=== PATIENT | female | born 1935 | race Caucasian/White ===

== ENCOUNTER 2017-03-16 14:34 | Inpatient (IN) | payer MEDICARE ==
[~2017-03-16] VITALS: Ht 152.4 cm; Wt 66.8 kg
[2017-03-16 15:41] VITALS: BP 113/82
[2017-03-16] MEDS ORDERED: ACETAMINOPHEN 325 MG TABLET/CAPLET (TYLENOL) PO PRN (16:00)
--- NOTE | 2017-03-16 16:07 | Occ Therapy Progress Note ---
Therapy Progress Note Date Seen by Provider: Mar 16, 2017 Time Seen by Provider: 16:00 [phone] Orientation to rehab process and what patient could expect tomorrow. Pleasant, cooperative, verbalized understanding. ROSSY CARTER OT Mar 16, 2017 16:07
[2017-03-16 16:10] VITALS: BP 113/82
[2017-03-16] MEDS ORDERED: ACET-2422 PO (16:11)
[2017-03-16] MEDS ORDERED: METO50TA2 PO ×2 (16:11)
[2017-03-16] MEDS ORDERED: RIVA1TAB PO (16:11)
[2017-03-16] MEDS ORDERED: PANT40TA3 PO (16:11)
[2017-03-16] MEDS: RIVAROXABAN 15 MG TABLET (XARELTO) PO SCH (17:20)
--- NOTE | 2017-03-16 17:46 | HISTORY AND PHYSICAL ---
DATE OF SERVICE: 03/16/2017 CHIEF COMPLAINT: Difficulty with walking. HISTORY OF PRESENT ILLNESS: The patient is an 81-year-old female who presented from an outlying facility to [facility] with shortness of breath and left lower extremity pain and swelling and generalized weakness. The patient had recently been diagnosed with atrial fibrillation which was of new onset by PCP and patient placed herself on bedrest for 4 weeks prior to this illness which was felt to have precipitated the DVT and bilateral Pulmonary Embolism She was placed on Beta gerry and scheduled to have F/U on an outpatient basis with Comfort Advisor.. She was admitted to the hospitalist service and she was found to have pulmonary emboli and a left DVT. She was started on heparin drip and then transitioned to Xarelto. She had a 2D echocardiogram which revealed the patient in atrial fibrillation with a heart rate of 100 to 220 beats per minute, but with normal left ventricular systolic function. The patient was continued on Xarelto and metoprolol.The patient was referred to inpatient rehabilitation at [facility] as to be closer to the home. She lives alone in [place], [place] but has supportive daughter and son-in-law that live nearby and present to unit with her. She had been independent prior to this. Apparently, she requires standby assist to [facility] for mobility and much of her ADLs. PAST MEDICAL HISTORY: 1. Recent onset of atrial fibrillation. Has not seen dental hygienist mobile coordinator at this point. 2. Hypertension. 3. She was noted to have hypokalemia and she had a replacement. Hospitalist from [place] discussed case with Dr. Ruano by phone today. PAST SURGICAL HISTORY: Noncontributory. ALLERGIES: No known medication allergies. FAMILY HISTORY: Significant for HTN Heart D and Stroke SOCIAL HISTORY: Lives alone in [place], [place]. Has supportive family nearby. DIAGNOSTIC DATA: EKG done upon admission here shows atrial fibrillation,with a ventricular rate of 71 and 147. REVIEW OF SYSTEMS: A 10-point review of systems is significant for irregular beat, generalized weakness, gait imbalance. MEDICATIONS: Xarelto 15 mg p.o. b.i.d., Tylenol 650 mg p.o. q.8 hours p.r.n. mild pain, Protonix 40 mg p.o. daily, Lopressor 50 mg p.o. b.i.d. PHYSICAL EXAMINATION: GENERAL APPEARANCE: Significant for a pleasant female lying in bed, alert and oriented. No acute distress. VITAL SIGNS: Temp is 99.5, pulse 91, respirations 16, blood pressure 113/82, pulse is irregular, O2 sat 98% on room air. HEENT: Vision, speech and hearing are grossly intact. No oral lesions are noted. NECK: Supple without mass. HEART: Irregular rhythm. LUNGS: Clear. ABDOMEN: Soft and nontender. Bowel sounds present. EXTREMITIES: No limb edema. No calf tenderness. MUSCULOSKELETAL: The patient has functional passive range of motion in all 4 extremities. NEUROLOGIC: Cognition intact. Sensation intact to touch. Strength overall 4-/5. SKIN: Fungal skin rash of the groin IMPRESSION: 1. Diffuse myopathy secondary to prolonged immobilzation with resulting left lower limb deep vein thrombosis with associated bilateral pulmonary emboli status post anticoagulation with heparin and now being transitioned to Xarelto. 2. Hypertension, controlled with medication. 3. Relatively new onset atrial fibrillation, consult cardiology. 4. Fungal groin rash-Diflucan and Topical RX PLAN: The patient will have a comprehensive program of inpatient rehabilitation with goal of maximizing level of function of independence prior to discharge home with family and home healthcare. The patient will have PT/OT 90 minutes per day each discipline, 5 days a week for gait, strengthening, conditioning, balance, energy conservation, any patient or family caregiver training, necessary adaptive equipment training necessary. Therapy with cardiac and fall precautions. The patient will have speech, cognitive assessment, treat as indicated. Rehabilitation nursing to assist with bowel, bladder, skin, wound care, medications administration. creative services designer assist with discharge planning, community re-entry. Consult for general medical F/U. Follow up with Dr. Hung for cardiac eval re furhter treatment of the atrial fibrillation. Primary care provider is Dr. Tan at [facility]. Routine admission labs. ESTIMATED LENGTH OF STAY: Seven to 10 days. PROGNOSIS: Rehab prognosis appears good with a goal of discharging to home with family and home health care, modified independence, supervision for ADLs and mobility skills. DIET: Regular. CODE STATUS: Full code. Job ID: [id number] DocumentID: [id number] Dictated Date: 03/16/2017 17:08:02 Consulting Business Developer Date: 03/16/2017 17:46:29 Dictated By: AMANDA RUANO MD [facility]
[2017-03-16 18:18] VITALS: BP 100/70
[2017-03-16] MEDS: meTOprolol TARTRATE 50 MG (LOPRESSOR) TAB PO SCH (20:12)
[2017-03-16] MEDS: CLOTRIMAZOLE 1% CREAM (LOTRIMIN) 30 GM TOP SCH (20:13)
[2017-03-17 05:48] VITALS: BP 112/77
[2017-03-17] MEDS: RIVAROXABAN 15 MG TABLET (XARELTO) PO SCH ×2 (06:07→17:13)
[2017-03-17] MEDS: PANTOPRAZOLE 40 MG (PROTONIX) TAB PO SCH (06:07)
[2017-03-17 06:58] LABS: BASOPHILS % (AUTO) 0 % (0-10); EOSINOPHILS # (AUTO) 0.2 10^3/uL (0.0-0.3); EOSINOPHILS % (AUTO) 3 % (0-10); LYMPHOCYTES # (AUTO) 1.5 X 10^3 (1.0-4.0); LYMPHOCYTES % (AUTO) 23 % (12-44); MEAN CORPUSCULAR HEMOGLOBIN 26 PG (25-34); MEAN CORPUSCULAR HGB CONC 31 G/DL (32-36); MEAN CORPUSCULAR VOLUME 83 FL (80-99); MEAN PLATELET VOLUME 10.8 FL (7.4-10.4); MONOCYTES # (AUTO) 0.7 X 10^3 (0.0-1.0); MONOCYTES % (AUTO) 11 % (0-12); NEUTROPHILS # (AUTO) 3.9 X 10^3 (1.8-7.8); NEUTROPHILS % (AUTO) 62 % (42-75); PLATELET COUNT 319 10^3/uL (130-400); RED BLOOD COUNT 4.68 10^6/uL (4.35-5.85); RED CELL DISTRIBUTION WIDTH 15.7 % (10.0-14.5); WHITE BLOOD COUNT 6.2 10^3/uL (4.3-11.0)
[2017-03-17 07:20] LABS: ALANINE AMINOTRANSFERASE 28 U/L (0-55); ALBUMIN 3.3 G/DL (3.2-4.5); ANION GAP 10 MMOL/L (5-14); ASPARTATE AMINO TRANSFERASE 27 U/L (5-34); BILIRUBIN,TOTAL 0.6 MG/DL (0.1-1.0); BLOOD UREA NITROGEN 12 MG/DL (7-18); BUN/CREATININE RATIO 15; CALCIUM 9.5 MG/DL (8.5-10.1); CARBON DIOXIDE 24 MMOL/L (21-32); CHLORIDE 106 MMOL/L (98-107); CREATININE SERUM 0.79 MG/DL (0.60-1.30); GFR ESTIMATED > 60; GLUCOSE 103 MG/DL (70-105); POTASSIUM 4.3 MMOL/L (3.6-5.0); SODIUM 140 MMOL/L (135-145)
--- NOTE | 2017-03-17 08:16 | Consultation ---
History of Present Illness History of Present Illness Patient Consulted On(faraz/time) 03/17/17 08:11 Date of Admission History of Present Illness patient had shortness of breath and left lower extremity pain and swelling and generalized weakness. Recently diagnosed with A. fib. Patient had a pulmonary emboli and left DVT. Hypertension history. Debility. Patient going downhill according to her. Surgeries tonsils and D&C. Mother A. fib and CHF. Grandmother on father's side cancer Allergies and Home Medications Allergies Coded Allergies: No Known Drug Allergies (Unverified , 03/16/17) Home Medications Acetaminophen 650 Mg Tablet.er, 650 MG PO Q8H PRN for PAIN-MILD, (Reported) Metoprolol Tartrate 50 Mg Tablet, 100 MG PO DAILY, (Reported) TAKES 2 (50 MG) TABLETS Metoprolol Tartrate 50 Mg Tablet, 50 MG PO HS, (Reported) Pantoprazole Sodium 40 Mg Tablet.dr, 40 MG PO DAILY, (Reported) Rivaroxaban 1 Each Tab.ds.pk, 1 TAB PO UD, #51 (Reported) 15mg by mouth twice daily x 21 days then 20mg by mouth daily Past Troexwr-Dykrpt-Ehdruk Hx Patient Social History Alcohol Use: Denies Use Recreational Drug Use: No Smoking Status: Never a Smoker Recent Foreign Travel: No Contact w/Someone Who Travel: No Recent Infectious Disease Expo: No Recent Hopitalizations: Yes (DVT AT [place]) Physical Abuse Screen: No Sexual Abuse: No Immunizations Up To Date PED Vaccines UTD: No Date of Pneumonia Vaccine: February 08, 2017 Seasonal Allergies Seasonal Allergies: Yes (HAYFEVER) Surgeries Surgeries: Tonsillectomy Respiratory Respiratory Disorders: Pulmonary Embolism Cardiovascular Cardiac Disorders: Deep Vein Thrombosis Gastrointestinal Gastrointestinal Disorders: Diverticulosis Musculoskeletal Musculoskeletal Disorders: Arthritis HEENT Hearing Impairment: Hard of Hearing, Hearing Aide Right Family Medical History Family Medial History: Cardiovascular disease 19 FATHER 19 MOTHER Hypertension 19 MOTHER Review of Systems-General Time Seen by Provider: 08:05 Constitutional: no symptoms reported EENTM: no symptoms reported Respiratory: no symptoms reported Cardiovascular: other (atrial fibrillation) Gastrointestinal: no symptoms reported Genitourinary: no symptoms reported Physical Exam-General Problems Physical Exam Vital Signs Vital Sign - Last 12Hours 03/16/17 15:41 Temp 99.5 Pulse 91 Resp 16 B/P (MAP) 113/82 Pulse Ox 98 Capillary Refill : Less Than 3 Seconds General Appearance: WD/WN, no apparent distress Eyes: Bilateral Eye Normal Inspection HEENT: other (doris of hearing) Cardiovascular: irregularly irregular Gastrointestinal: non tender, soft Assessment/Plan Assessment/Plan Admission Diagnosis/Plan debility. Atrial fibrillation. DVT. Pulmonary emboli. Hypertension Clinical Quality Measures DVT/VTE Risk/Contraindication: Risk Factor Score Per Nursin RFS Level Per Nursing on Admit: 4+=Very High OCTAVIO COREA DO Mar 17, 2017 08:16
[2017-03-17 08:27] VITALS: BP 121/79
[2017-03-17] MEDS: fluCOnazole (DIFLUCAN) 100 MG TAB PO SCH (08:28)
[2017-03-17] MEDS: meTOprolol TARTRATE 50 MG (LOPRESSOR) TAB PO SCH (08:28)
[2017-03-17] MEDS: CLOTRIMAZOLE 1% CREAM (LOTRIMIN) 30 GM TOP SCH ×2 (08:29→20:28)
--- NOTE | 2017-03-17 08:44 | Consultation-Cardiology ---
HPI-Cardiology Cardiology Consultation: Date of Consultation 03/17/17 Date of Admission 03-16-17 Attending Physician Stanley Ruano MD Admitting Physician Unknown Consulting Physician Iesha Hung MD HPI: Chief Complaint: A-fib Ms. Clark is an 82 year old female who was admitted to [facility] on from [facility] with increasing weakness and exertional dyspnea. She was found to be in a-fib (new onset). She was also found to have bilat PE and a left leg DVT. She was treated with Heparin and then transitioned to Xarelto prior to her discharge from [facility]. She states she was taking no medications at home and had been in good health until this recent illness. She reports she is feeling better. She continues to have generalized weakness, but feels it is improving. She does not report any CP, palpitations, dyspnea, syncope or near syncope. She does note swelling to her left leg. No n/v/d. No c/o fever or chills. Review of Systems-Cardiology Review of Systems Date Seen by Provider: Mar 16, 2017 Time Seen by Provider: 08:05 Constitutional: As described under HPI Eyes: No blurred vision, No drainage, No pain, No vision change Ears/Nose/Throat: No ear discharge, No ear pain, No nasal drainage, No ulcerations Respiratory: As described under HPI Cardiovascular: As described under HPI Gastrointestinal: No constipation, No diarrhea, No nausea, No vomiting, No stool coloration changes Genitourinary: No dysuria, No discharge, No frequency, No hematuria, No urgency Skin: No rash, No skin related problems, No ulcerations Psychiatric/Neurological: No anxiety, No depression, No focal weakness, No seizure, No syncope Hematologic: No bleeding abnormalities JWM-Ktzmrx-Cfpnyg Hx Patient Social History Alcohol Use: Denies Use Recreational Drug Use: No Smoking Status: Never a Smoker Recent Foreign Travel: No Recent Infectious Disease Expo: No Physical Abuse Screen: No Sexual Abuse: No Immunizations Up To Date Date of Pneumonia Vaccine: February 08, 2017 Past Medical History PMH As described under Assessment. Family Medical History Family Medical History: She reports her mother had several strokes and hypertenison. No h/o CAD. Family History: Cardiovascular disease 19 FATHER 19 MOTHER Hypertension 19 MOTHER Allergies and Home Medications Allergies Coded Allergies: No Known Drug Allergies (Unverified , 03/16/17) Home Medications Acetaminophen 650 Mg Tablet.er, 650 MG PO Q8H PRN for PAIN-MILD, (Reported) Metoprolol Tartrate 50 Mg Tablet, 100 MG PO DAILY, (Reported) TAKES 2 (50 MG) TABLETS Metoprolol Tartrate 50 Mg Tablet, 50 MG PO HS, (Reported) Pantoprazole Sodium 40 Mg Tablet.dr, 40 MG PO DAILY, (Reported) Rivaroxaban 1 Each Tab.ds.pk, 1 TAB PO UD, #51 (Reported) 15mg by mouth twice daily x 21 days then 20mg by mouth daily Physical Exam-Cardiology Physical Exam Vital Signs/I&O Vital Sign - Last 12Hours 03/18/17 05:58 Temp 98.7 Pulse 99 Resp 20 B/P (MAP) 126/77 Pulse Ox 99 O2 Flow Rate 2.50 Intake and Output 03/18/17 00:00 Intake Total 700 ml Balance 700 ml Capillary Refill : Less Than 3 Seconds Constitutional: appears stated age, No apparent distress, well-developed, well- nourished HEENT: PERRL, No discharge, hearing is well preserved, oral hygience is good, No ulceration, No xanthelasmas are seen Neck: No carotid bruit, carotid pulses are 2 + bilaterally Respiratory: lungs clear to auscultation Cardiovascular: irregularly irregular, No JVD, S1 and S2 Gastrointestinal: No tender, soft, audible bowel sounds, No spleenomegaly Rectal: deferred Extremities: No clubbing, No cyanosis, significant edema (2 (+) edema LLE) Neurologic/Psychiatric: alert, oriented x 3, power is 5/5 both on sides Skin: No rash, No ulcerations Data Review Labs Laboratory Tests 03/18/17 05:42: Thyroid Stimulating Hormone (TSH) 1.04 ECG Impression ECG Comment A-fib, rate 107 A/P-Cardiology Assessment/Admission Diagnosis A-fib: First diagnosed March 12, 2017 PE: Extensive bilat pulmonary embolism; including large proximal PE; Pulmonary emboli are identified in all five lobes. Peripheral lung densities are identified, for which infarcts are suspected. Per CTA at [facility] on March 13, 2017 Left lower extremity DVT - Non-occlusive thrombus in the femoral vein, anterior tibial, and posterior tibial veins. Per venous Doppler at [facility] on March 13, 2017 Torres's cyst in the popliteal fossa per LLE venous Doppler at [facility] on March 13, 2017. Echocardiogram from [facility] showed she was in a-fib with a HR of greater than 100 bpm. Limited echo with limited visualization. Prob normal LV systolic function Discussion and Recomendations New finding of a-fib at the time of hospitalization on March 12, 2017. We will change her short acting BB to long acting BB. We will continue OAC with Xarelto. The echocardiogram at [facility] was a sub-optimal study and does not say LV function was normal d/t fast HR at the time of the study. We will repeat the echocardiogram to evaluate LVEF and structure. We will check a TSH. Monitor lab. We would like to thank Dr. Ruano for this consult. Further recommendations will be based on her hospital course. This consult is being scribed by Tonny Carver APRN on behalf of Dr. Hung after discussion regarding plan of care. Clinical Quality Measures DVT/VTE Risk/Contraindication: Risk Factor Score Per Nursin RFS Level Per Nursing on Admit: 4+=Very High Physician Assessment Physician Assessment THIS IS LATE ENTRY FOR MY VISIT TO THE PATIENT ON 03/17/17 AT 9:30 AM Lungs: clear Cor: irreg Data review: I reviewed her previous records A&R * As documented in our note above * I spoke with her an answered questions JENNIFER CARVER Mar 17, 2017 08:44 IESHA HUNG MD FACP [facility] Mar 18, 2017 11:00
[2017-03-17] MEDS ORDERED: RIVAROXABAN 20 MG TABLET (XARELTO) PO SCH (09:00)
[2017-03-17] MEDS ORDERED: meTOprolol SUCCINATE 100 MG (TOPROL XL) TAB PO NR (09:15)
--- NOTE | 2017-03-17 10:31 | ST Cognitive Linguistic Eval ---
Speech Evaluation-General Medical Diagnosis Debility Onset Date: Mar 16, 2017 Therapy Diagnosis Therapy Diagnosis: Cognitive Linguistic Skills WFL Precautions Precautions/Isolations: Fall Prevention, Standard Precautions Referral Referring Physician: Dr. Stanley Ruano Reason for Referral: Evaluation/Treatment Cognitive Evaluation Medical History Pertinent Medical History: Atrial Fib, HTN Social History Current Living Status: Alone Speech PLF-Current Status Prior Level of Function The patient denied any recent challenges with speech, language, or cognition. Subjective The patient was recently admitted to [facility] with a diagnosis of debility. The patient greeted the clinician appropriately and was agreeable to participation in the cognitive evaluation. Language Eval: Auditory Comprehends Simple Yes/No Ques: Functional Indent/Objects Multiple [place]: Functional Ident/Pics in Multiple [place]: Functional Follows 1-Step Commands: Functional Follows Complex Directions: Functional (Repetition was required secondary to reduced hearing.) Follows General Conversations: Functional Language Eval: Verbal Language Completes Spontaneous Greeting: Functional Produces Auto, Serial Info: Functional Imitates Simple Words/Phrases: Functional Word Finding: Functional Requests Basic Needs: Functional States Basic Personal Info: Functional Expresses Complex Ideas: Functional Cognitive Patient Orientation The patient was oriented to self, location, rationale for rehabilitation, month , day of week, and year (independently). Objective Cognitive Domain Attention: WNL Memory: WNL Problem Solving: Functional Objective Impression The patient demonstrated cognitive linguistic skills grossly within normal limits and appropriate for completion of ADL's. Communication/Social Cognition Comprehension: 5 Expression: 6 Social Interaction: 6 Problem Solvin Memory: 5 Speech Patient Assess Expression of Ideas/Wants: Expression (4) Understanding V[place]al Content: Usually Understands (3) Brief Interview-Mental Status: Yes Repetition of Three Words: Three (3) Temporal Orientation: Year: Correct (3) Temporal Orientation: Month: Accurate within 5 days(2) Temporal Orientation: Day: Correct (1) Recall : Wear to say "Sock": Yes, no cue required (2) Recall : Color: Yes, no cue required (2) Recall : Bed: Yes, no cue required (2) Speech-Plan Treatment Plan Speech Therapy Treatment Plan: Discontinue ST Evaluation, only. Rehab Potential: Good Safety Risks/Education Teaching Recipient: Patient Teaching Methods: Discussion Response to Teaching: Verbalize Understanding Education Topics Provided: Plan of Care, Results, Recommendations Time Speech Therapy Time In: 09:00 Speech Therapy Time Out: 09:15 Total Billed Time: 15 Billed Treatment Time 1, CHAIMNDEDILIA RODRIGUEZ Mar 17, 2017 10:31
--- NOTE | 2017-03-17 10:36 | Physical Therapy Evaluation ---
PT Evaluation-General Medical Diagnosis Admission Date Mar 16, 2017 at 15:48 Medical Diagnosis: generalized weakness, dyspnea, LLE swelling Onset Date: Mar 12, 2017 Therapy Diagnosis Therapy Diagnosis: impaired mobility, strength, endurance Height/Weight Height (Feet): 5 Height (Inches): 0.00 Weight (Pounds): 147 Weight (Ounces): 4.8 Precautions Precautions/Isolations: Fall Prevention, Standard Precautions Referral Physician: Alden Reason for Referral: Evaluation/Treatment Medical History Pertinent Medical History: HTN Additional Medical History UTI, diverticulitis Current History admitted from outlying facility with dx of above, shown to have bilateral pulmonary emboli and left DVT Reviewed History: Yes Social History Home: Single Level Current Living Status: Alone Entry Into Home: Stairs With Railing PT Steps Into Home: 2 Patient states her daughter only lives about 5 minutes from her. Prior/Core FIM Prior Level of Function Functional [place] Measure 0=Not Assessed/NA 4=Minimal Assistance 1=Total Assistance 5=Supervision or Setup 2=Maximal Assistance 6=Modified [place] 3=Moderate Assistance 7=Complete [place] Bed Mobility: 7 Transfers (B,C,W/C) (FIM): 7 Gait: 7 PT Evaluation-Current Subjective Patient in bed pre tx, agrees to PT reluctantly. No complaints of pain. Pt/Family Goals to go home BRANDI Objective Patient Orientation: Person, Place, Situation ROM/Strength ROM Lower Extremities WNL, knee ROM limited a little on the right side due to arthritis Strenght Lower Extremities 4-/5 gross bilateral lower extremities Neuromuscular (Tone, Coordination, Reflexes) WNL Sensory Vision: Wears Glasses Hearing: Impaired Sensation Right Lower Extremit: Intact Sensation Left Lower Extremity: Intact Transfers Functional [place] Measure 0=Not Assessed/NA 4=Minimal Assistance 1=Total Assistance 5=Supervision or Setup 2=Maximal Assistance 6=Modified [place] 3=Moderate Assistance 7=Complete IndependenceIRFPAI Quality Coding Scale 6 Independent with activity with or without an assistive device 5 Patient requires set up or clean up by helper. Patient completes activity by themselves 4 Supervision or touching assist (CGA). [place] provide cues , steadying assist 3 The helper provides less than half the effort to complete the activity 2 The helper provides more than half the effort to complete the activity 1 Dependent. The helper does all the effort to complete an activity 7 Patient refused to complete or attempt activity 9 The patient did not perform the activity before the current illness or injury 88 Not attempted due to Medical conditions or safety concerns Transfers (B, C, W/C) (FIM): 4 Scootin Rollin Roll Left to Right (QC): 4 Supine to/from Sit: 5 Sit to/from Stand: 4 Sit to Lying (QC): 4 Lying to Sitting/Side of Bed(Q: 4 Sit to Stand (QC): 4 Car Transfer (QC): 88 Patient performs bed mobility with SBA, transfers with CGA, cues for safety and hand placement. Gait Does the Patient Walk?: Yes Mode of Locomotion: Walk Anticipated Mode of Locomotion: Walk Gait (FIM): 4 Walk 10 feet (QC): 4 Walk 50 ft with 2 Turns(QC): 4 Walk 150 ft (QC): 4 Walking 10ft/uneven surface-QC: 4 Distance: 150'x2, 100' Gait Level of Assist: 4 Gait Persons Needed: 1 Gait Assistive Device: FWW Comments/Gait Description Patient can ambulate 150' with CGA using a rolling walker (including 50' with at least 2 turns of 90 degrees and 10' over an uneven surface). No LOB. Slow ambulation, fatigues quickly. Wheelchair Training Does the Pt Use a Wheelchair?: No Stairs Stairs (FIM): 1 #of Steps: 1 Level of Assist: 4 1 Step (curb) (QC): 4 4 Steps (QC): 88 Assistive Device: Walker 12 Steps (QC): 88 Patient can go up and down 1 step using a rolling walker with CGA, cues for step placement Balance Sitting Static: Normal Sitting Dynamic: Normal Standing Static: Good Standing Dynamic: Good Picking up an Object (QC): 88 Treatment NuStep level 5 for 15 min Assessment/Needs Patient has impaired mobility, strength, and endurance. Her balance is fairly good but she fatigues quickly. She would like to leave [facility]. Patient BTB post tx for a sonogram. Rehab Potential: Fair PT Short Term Goals Short Term Goals Time Frame: Mar 24, 2017 Transfers (B,C,W/C) (FIM): 5 Gait (FIM): 5 Gait Distance Comment: 200' Gait Level of Assist: 5 Gait Assistive Device: FWW PT Skilled Nursing Goals Delivery Man Goals PT Skilled Nursing Goals Time Frame: Apr 07, 2017 Transfers (B,C,W/C) (FIM): 6 Sit to Lying (QC): 6 Lying-Sitting on Side/Bed(QC): 6 Sit to Stand (QC): 6 Rollin Roll Left to Right (QC): 6 Car Transfer (QC): 4 Gait (FIM): 6 Distance: 400' Walk 10 feet (QC): 6 Walk 10ft-Uneven Surface(QC): 6 Walk 50ft with 2 Turns (QC): 6 Walk 150 ft (QC): 6 Gait Assistive Device: FWW Stairs (FIM): 2 # of Steps: 4 1 Step (curb) (QC): 4 4 Steps (QC): 4 12 Steps (QC): 88 Stairs Level Of Assist: 5 Picking up an Object (QC): 88 PT Plan Problem List Problem List: Activity Tolerance, Functional Strength, Safety, Balance, Gait, Transfer, Bed Mobility Treatment/Plan Treatment Plan: Continue Plan of Care Treatment Plan: Bed Mobility, Education, Functional Activity [place], Functional Strength, Group Therapy, Gait, Safety, Therapeutic Exercise, Transfers Treatment Duration: Apr 07, 2017 # of days/week 5-6 Visits Per Week: 10-11 Minutes/Day (M-F): 60-90 Minutes/Day (Sat/Colon): 15-30 Pt/Family Agrees w/Plan: Yes Safety Risks/Education Patient Education: Gait Training, Transfer Techniques, Steps, Correct Positioning, Safety Issues Teaching Recipient: Patient Teaching Methods: Demonstration, Discussion Response to Teaching: Reinforcement Needed Discharge Recommendations Plan Patient will perform bed mobility and transfer training, balance and endurance training, functional strengthening, stair training, and education, to improve functional mobility and independence at home. Therapy D/C Recommendations: Home w/ Family Support Time/GCodes Time In: 940 Time Out: 1040 Total Billed Treatment Time: 60 Total Billed Treatment 1 visit EVL 15' EX 15' GT 30' KIA MEDEL PT Mar 17, 2017 10:36
--- NOTE | 2017-03-17 10:56 | PM&R Post Admission Assessment ---
Post Admission Physician Asses The preadmission screen agrees with the post admission assessment that the patient is a good candidate for inpatient rehabilitation. The patient will have a comprehensive program of inpatient rehabilitation with a goal of maximizing level of functional independence prior to discharge home with family and [facility]. The patient will have PT/OT ninety minutes per day, each discipline, five days a week for gait, strengthening, conditioning, balance, ADLs, any patient/family/caregiver training as necessary. Speech therapy to do cognitive assessment and treat as indicted. Rehabilitation nursing to assist with bowel, bladder, skin, wound care, medication administration, pain management. Marketing Technologist to assist with discharge planning, community reentry. SCD's for DVT prophylaxis. She appears to be well motivated to participate in three hours of therapy a day. She should be able to tolerate three hours of therapy a day from a medical standpoint. She should benefit from the three hours of therapy a day. She has a reasonable discharge plan, reasonable discharge rehabilitation goals and a supportive family. She has various comorbidities that need to be closely monitored with medications and treatments adjusted on a daily basis as needed. These include: New onset A FIB Diffuse weakness from prolonged bedrest HTN Barriers to discharge for this patient who had been independent prior to this are for her to be modified independent to supervision for ADLs and mobility skills prior to discharge home with family, so as to lessen the burden of the caregivers. Risks for this patient include: 1. Fall 2. Fracture 3. DVT 4. Pulmonary embolism 5. Poorly controlled HTN 6. Skin breakdown 7. Contractures 8. Poorly controlled pain 9. Urinary retention 10. UTI 11. Respiratory infection 12. Aspiration 13. Poorly controlled A FIB Estimated Length of Stay: 10 days Prognosis: Rehab prognosis appears good for goal of discharge home with family modified independent to supervision for ADLs and mobility skills. AMANDA ANN MD Mar 17, 2017 10:56
--- NOTE | 2017-03-17 11:08 | Occupational Therapy Eval ---
OT Evaluation-General/PLF Medical Diagnosis Admission Date Mar 16, 2017 at 15:48 Medical Diagnosis: generalized weakness, dyspnea, LLE swelling Onset Date: Mar 12, 2017 Therapy Diagnosis Therapy Diagnosis: decreased self care skills Height/Weight Height (Feet): 5 Height (Inches): 0.00 Weight (Pounds): 147 Weight (Ounces): 4.8 Precautions Precautions/Isolations: Fall Prevention, Standard Precautions Safety Interventions: Reorient-PRN Referral Physician: [place] Medical History Pertinent Medical History: HTN Additional Medical History UTI, diverticulitis Current History Pt admitted to ARU following acute hospitalization for bilateral pulmonary emboli and left DVT Reviewed History: Yes Social History Home: Single Level Current Living Status: Alone Entry Into Home: Stairs With Railing Steps Into Home: 2 ADL-Prior Level of Function ADL PLOF Comments Pt reports living alone and being independent with self care and mobility. Has not been using any assistive devices for mobility. Pt states she has gradually feeling more weak and fatigued at home. Daughter lives nearby DME/Equipment: Bath Chair, Grab Bars, Tub/Shower Drive Self: No OT Current Status Subjective Pt in bed, agrees to therapy. 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 Sit to stand with supervision. Gait to restroom with FWW. Transfer to walk in shower with CGA and skilled cues for safety. Uses grab bars for balance. Pt doffed nightgown and socks with SBA. Seated bathing completed using hand held shower. Pt able to wash all areas. Stood with CGA for balance while washing buttocks. Don pullover shirt with minimal assistance to pull down in back. Pt states she does not wear a bra secondary to difficulty fastening it due to arthritis in shoulders. Pt donned underwear and pants with CGA for balance during pant hike. Donned bilateral socks with set up. Toilet transfer completed with CGA. Pt able to complete toileting hygiene, required CGA for balance during clothing management. Pt stood at sink for grooming tasks. Brushed teeth and combed hair with set up. Pt returned to bed with needs met and speech therapist present after session. Functional [place] Measure 0=Not Assessed/NA 4=Minimal Assistance 1=Total Assistance 5=Supervision or Setup 2=Maximal Assistance 6=Modified [place] 3=Moderate Assistance 7=Complete IndependenceIRFPAI Quality Coding Scale 6 Independent with activity with or without an assistive device 5 Patient requires set up or clean up by helper. Patient completes activity by themselves 4 Supervision or touching assist (CGA). [place] provide cues , steadying assist 3 The helper provides less than half the effort to complete the activity 2 The helper provides more than half the effort to complete the activity 1 Dependent. The helper does all the effort to complete an activity 7 Patient refused to complete or attempt activity 9 The patient did not perform the activity before the current illness or injury 88 Not attempted due to Medical conditions or safety concerns Grooming (FIM): 5 Oral Hygiene (QC): 5 Bathing (FIM): 4 Shower/Bathe Self (QC): 4 Upper Body Dressing (FIM): 4 Upper Body Dressing (QC): 3 Lower Body Dressing (FIM): 4 Lower Body Dressing (QC): 4 On/Off Footwear (QC): 5 Toileting (FIM): 4 Toileting Hygiene (QC): 4 (CGA) Toilet/Commode Transfer (FIM): 4 (CGA) Shower Transfer (FIM): 4 (CGA) Education OT Patient Education: Rehab process Teaching Recipient: Patient Teaching Methods: Discussion Response to Teaching: Verbalize Understanding OT Short Term Goals Short Term Goals Time Frame: Mar 24, 2017 Bathing(FIM): 5 Upper Body Dressing(FIM): 5 Lower Body Dressing(FIM): 5 Toileting(FIM): 5 Toilet/Commode Transfer(FIM): 5 1=Demonstrate adherence to instructed precautions during ADL tasks. 2=Patient will verbalize/demonstrate understanding of assistive devices/ modifications for ADL. 3=Patient will improve strength/tolerance for activity to enable patient to perform ADL's. OT Halfway Goals Lace Roller Operator Goals Time Frame: Apr 07, 2017 Eating (FIM): 6 Eating (QC): 6 Groomin Oral Hygiene (QC): 6 Bathing(FIM): 6 Shower/Bathe Self (QC): 6 Upper Body Dressing(FIM): 6 Upper Body Dressing (QC): 6 Lower Body Dressing(FIM): 6 Lower Body Dressing (QC): 6 On/Off Footwear (QC): 6 Toileting(FIM): 6 Toileting Hygiene (QC): 6 Toilet/Commode Transfer(FIM): 6 Toilet/Commode Transfer (QC): 6 Shower Transfer(FIM): 6 Additional Goals: 1-Demonstrate ADL Tasks, 2-Verbalize Understanding, 3- ImproveStrength/[place] 1=Demonstrate adherence to instructed precautions during ADL tasks. 2=Patient will verbalize/demonstrate understanding of assistive devices/ modifications for ADL. 3=Patient will improve strength/tolerance for activity to enable patient to perform ADL's. Goals established to improve level of function and allow safe return home. OT Education/Plan Problem List/Assessment Assessment: Decreased Activ Tolerance, Decreased UE Strength, Dependent Transfers, Impaired Self-Care Skills Pt to benefit from skilled OT intervention for ADL training, transfers, strengthening, and home safety education to maximize level of independence and allow safe return home. Discharge Recommendations Plan/Recommendations: Continue POC Treatment Plan/Plan of Care Treatment,Training & Education: Yes Patient would benefit from OT for education, treatment and training to promote independence in ADL's, mobility, safety and/or upper extremity function for ADL' s. Plan of Care: ADL Retraining, Functional Mobility, Group Exercise/Act as Ind, UE Funct Exercise/Act Treatment Duration: Apr 07, 2017 # of days/week 5-6 Visits Per Week: 10-12 Minutes/Day (M-F): 60-90 Minutes/Day (Sat/Colon): PRN Agreement: Yes Rehab Potential: Fair Time/GCodes Start Time: 08:00 Stop Time: 09:00 Total Time Billed (hr/min): 60 Billed Treatment Time 1 visit, EVL(15minutes), ADLx3(45minutes) NGHIA RAMIREZ OT Mar 17, 2017 11:08
--- NOTE | 2017-03-17 14:33 | PM & R (SOAP) Progress Note ---
Subjective Time Seen by Provider: 08:45 Subjective/Events-last exam Patient was seen in her room this AM Adjusting well to unit Appreciate DR Rutherford note and orders. Objective Exam Last Set of Vital Signs Vital Signs Date Time Temp Pulse Resp B/P (MAP) Pulse Ox O2 Delivery O2 Flow Rate FiO2 03/17/17 08:27 89 121/79 03/17/17 05:48 98.6 18 97 Capillary Refill : Less Than 3 Seconds I&O Bad tableGeneral: Alert, Oriented X3, Cooperative, No Acute Distress HEENT: Atraumatic, PERRLA, EOMI, Mucous Memb Moist/[place] Neck: Supple, No JVD Lungs: Clear to Auscultation Heart: Regular Rate Abdomen: Normal Bowel Sounds, Soft, No Tenderness Extremities: No Edema Skin: Other (Fungal groin rash) Neuro: Other (4-/5 strength all 4 limbs) Results Lab Laboratory Tests 03/17/17 06:32: White Blood Count 6.2, Red Blood Count 4.68, Hemoglobin 12.2, Hematocrit 39, Mean Corpuscular Volume 83, Mean Corpuscular Hemoglobin 26, Mean Corpuscular Hemoglobin Concent 31L, Red Cell Distribution Width 15.7H, Platelet Count 319, Mean Platelet Volume 10.8H, Neutrophils (%) (Auto) 62, Lymphocytes (%) (Auto) 23 , Monocytes (%) (Auto) 11, Eosinophils (%) (Auto) 3, Basophils (%) (Auto) 0, Neutrophils # (Auto) 3.9, Lymphocytes # (Auto) 1.5, Monocytes # (Auto) 0.7, Eosinophils # (Auto) 0.2, Basophils # (Auto) 0.0, Sodium Level 140, Potassium Level 4.3, Chloride Level 106, Carbon Dioxide Level 24, Anion Gap 10, Blood Urea Nitrogen 12, Creatinine 0.79, Estimat Glomerular Filtration Rate > 60, BUN/ Creatinine Ratio 15, Glucose Level 103, Calcium Level 9.5, Total Bilirubin 0.6, Aspartate Amino Transf (AST/SGOT) 27, Alanine Aminotransferase (ALT/SGPT) 28, Alkaline Phosphatase 108, Total Protein 6.0L, Albumin 3.3 Assessment/Plan Assessment Disuse myopathy Left DVT with bilateral Pulm Emboli on Xeralto Htn Controlled with meds New onset A FIB meds being adjusted Fungal groin skin rash on diflucan and Topical Plan Continue PT/OT Team Conference held earlier today- See report for full functional update and POC and ELOS F/U with Dr connolly and AMANDA Schaffer MD Mar 17, 2017 14:33
--- NOTE | 2017-03-17 16:17 | Therapy Group Daily Note ---
Therapy Daily Group Note Patient Education Topic Other List Below (Education over Ex that can be done in room between ARU tx) Exercises LE Seated Exercise, UE Exercise Other/Notes Pt ambulated to PT/OT Group in Therapy Commons with FWW at [facility]. Group consists of Introductions (Name, Where you live and Favorite Summertime Activity), Socialization, ARU Description and Expectations, UE/LE EX, as well as Inspirational Word of Encouragement. Pt actively participated in Group by giving appropriate responses to questions and completing Ex with Group. Pt returned to room to rest in bed at end of tx with all needs met. Start Time: 13:00 Stop Time: 14:10 Total Billed Treatment Time: 70 Total Billed Treatment visit, GRP LILA MCKEON HAT SIZER Mar 17, 2017 16:17
[2017-03-17 18:00] VITALS: BP 120/79
[2017-03-17 20:29] VITALS: BP 120/78
[2017-03-17] MEDS: meTOproloL SUCCINATE 50 MG (TOPROL XL) TAB PO SCH (20:29)
[2017-03-18 05:58] VITALS: BP 126/77
[2017-03-18] MEDS: RIVAROXABAN 15 MG TABLET (XARELTO) PO SCH ×2 (06:30→16:36)
[2017-03-18] MEDS: PANTOPRAZOLE 40 MG (PROTONIX) TAB PO SCH (06:30)
--- NOTE | 2017-03-18 07:25 | PM & R (SOAP) Progress Note ---
Subjective Time Seen by Provider: 07:00 Subjective/Events-last exam Patient was seen in her room this AM Slept well Eating OK Patient min assist for transfers Review of Systems Cardiovascular: Other (irregular Heart beat) Objective Exam Last Set of Vital Signs Vital Signs Date Time Temp Pulse Resp B/P (MAP) Pulse Ox O2 Delivery O2 Flow Rate FiO2 03/18/17 05:58 98.7 99 20 126/77 99 2.50 Capillary Refill : Less Than 3 Seconds I&O Intake and Output 03/18/17 00:00 Intake Total 900 ml Output Total 300 ml Balance 600 ml Intake Oral 900 ml Output Urine Total 300 ml # Voids 3 # Bowel Movements 1 General: Alert, Oriented X3, Cooperative, No Acute Distress HEENT: Atraumatic, PERRLA, EOMI, Mucous Memb Moist/[place] Neck: Supple, No JVD Lungs: Clear to Auscultation Heart: Regular Rate Abdomen: Normal Bowel Sounds, Soft, No Tenderness Extremities: No Edema Skin: Other (Fungal groin rash) Neuro: Other (4-/5 strength all 4 limbs) Results Lab Laboratory Tests 03/17/17 06:32: White Blood Count 6.2, Red Blood Count 4.68, Hemoglobin 12.2, Hematocrit 39, Mean Corpuscular Volume 83, Mean Corpuscular Hemoglobin 26, Mean Corpuscular Hemoglobin Concent 31L, Red Cell Distribution Width 15.7H, Platelet Count 319, Mean Platelet Volume 10.8H, Neutrophils (%) (Auto) 62, Lymphocytes (%) (Auto) 23 , Monocytes (%) (Auto) 11, Eosinophils (%) (Auto) 3, Basophils (%) (Auto) 0, Neutrophils # (Auto) 3.9, Lymphocytes # (Auto) 1.5, Monocytes # (Auto) 0.7, Eosinophils # (Auto) 0.2, Basophils # (Auto) 0.0, Sodium Level 140, Potassium Level 4.3, Chloride Level 106, Carbon Dioxide Level 24, Anion Gap 10, Blood Urea Nitrogen 12, Creatinine 0.79, Estimat Glomerular Filtration Rate > 60, BUN/ Creatinine Ratio 15, Glucose Level 103, Calcium Level 9.5, Total Bilirubin 0.6, Aspartate Amino Transf (AST/SGOT) 27, Alanine Aminotransferase (ALT/SGPT) 28, Alkaline Phosphatase 108, Total Protein 6.0L, Albumin 3.3 03/18/17 05:42: Thyroid Stimulating Hormone (TSH) 1.04 Assessment/Plan Assessment Disuse myopathy Left DVT with bilateral Pulm Emboli on Xeralto Htn Controlled with meds New onset A FIB meds being adjusted Fungal groin skin rash on diflucan and Topical Plan Continue PT/OT Team Conference held yesterday See report for full functional update and POC and ELOS F/U with Dr connolly and Nighat prn Discharge set tentatively for 03/24/17 AMANDA ANN MD Mar 18, 2017 07:25
--- NOTE | 2017-03-18 08:15 | Progress Note (SOAP) ---
Subjective Time Seen by Provider: 08:10 Subjective/Events-last exam patient feeling good today. Patient not voicing any complaints. Disuse myopathy. Atrial fibrillation. Coronary artery disease Objective Exam Vital Signs Date Time Temp Pulse Resp B/P (MAP) Pulse Ox O2 Delivery O2 Flow Rate FiO2 03/18/17 05:58 98.7 99 20 126/77 99 2.50 03/17/17 20:29 100 120/78 03/17/17 20:15 96 03/17/17 18:00 98.2 87 18 120/79 95 03/17/17 08:27 89 121/79 I & O 03/18/17 07:00 Intake Total 1000 ml Balance 1000 ml Capillary Refill : Less Than 3 Seconds General Appearance: No Apparent Distress HEENT: Normal ENT Inspection Neck: Full Range of Motion, Normal Inspection Respiratory: Chest Non Tender, Lungs Clear, Normal Breath Sounds, No Accessory Muscle Use, No Respiratory Distress Cardiovascular: Irregularly Irregular Gastrointestinal: non tender, soft Results Lab Laboratory Tests 03/18/17 05:42: Thyroid Stimulating Hormone (TSH) 1.04 Assessment/Plan Assessment/Plan Assess & Plan/Chief Complaint debility. Atrial fibrillation. DVT. Pulmonary emboli. Hypertension. . 03/18/17. Debility. Atrial fibrillation. Hypertension. DVT.. Patient alert Clinical Quality Measures DVT/VTE Risk/Contraindication: Risk Factor Score Per Nursin RFS Level Per Nursing on Admit: 4+=Very High OCTAVIO COREA DO Mar 18, 2017 08:15
[2017-03-18] MEDS: meTOprolol SUCCINATE 100 MG (TOPROL XL) TAB PO SCH (08:47)
[2017-03-18] MEDS: CLOTRIMAZOLE 1% CREAM (LOTRIMIN) 30 GM TOP SCH ×2 (08:47→20:37)
[2017-03-18] MEDS: fluCOnazole (DIFLUCAN) 100 MG TAB PO SCH (08:48)
--- NOTE | 2017-03-18 10:58 | Physical Therapy Daily Note ---
PT Daily Note-Current Subjective Patient in recliner pre tx, agrees to PT, no complaints of pain. Patient refuses to participate in group therapy this afternoon. Appearance Patient in recliner post tx with nurse call, phone, tray, all needs met. Mental Status Patient Orientation: Normal For Age Transfers Functional [place] Measure 0=Not Assessed/NA 4=Minimal Assistance 1=Total Assistance 5=Supervision or Setup 2=Maximal Assistance 6=Modified [place] 3=Moderate Assistance 7=Complete IndependenceIRFPAI Quality Coding Scale 6 Independent with activity with or without an assistive device 5 Patient requires set up or clean up by helper. Patient completes activity by themselves 4 Supervision or touching assist (CGA). [place] provide cues , steadying assist 3 The helper provides less than half the effort to complete the activity 2 The helper provides more than half the effort to complete the activity 1 Dependent. The helper does all the effort to complete an activity 7 Patient refused to complete or attempt activity 9 The patient did not perform the activity before the current illness or injury 88 Not attempted due to Medical conditions or safety concerns Transfers (B, C, W/C) (FIM): 5 Scootin Rollin Roll Left to Right (QC): 6 Supine to/from Sit: 6 Sit to/from Stand: 5 Sit to Lying (QC): 6 Sit to Stand (QC): 4 cues for safety and hand placement, will sit or stand and keep hands on walker. Patient performs bed mobility with mod I and transfers with SBA. Gait Training Gait (FIM): 5 Distance: 150'x2 Walk 10 feet (QC): 4 Walk 50 ft with 2 Turns(QC): 4 Walk 150 ft (QC): 4 Walking 10ft/uneven surface-QC: 4 Gait Level of Assist: 5 Gait Persons Needed: 1 Gait Assistive Device: FWW Patient can ambulate 150' with a rolling walker with SBA (including 50' with at least 2 turns of 90 degrees and 10' over an uneven surface). Slow, but steady ambulation. Wheelchair Training Does the Pt Use a Wheelchair?: No Stair Training Stair Training: Handrails/: 2 handrails Stairs (FIM): 2 #of Steps: 4 1 Step (curb) (QC): 4 4 Steps (QC): 4 12 Steps (QC): 88 Stairs: Pattern: Step to Level of Assist: 5 Patient can go up and down 4 steps using 2 handrails with SBA. She has trouble doing more than 4 steps because of her knees. Balance Picking up an Object (QC): 88 Exercises LAQ alternating with 2# ankle weights for 5 min, sit to stand 3 sets of 5 NuStep Minutes: 15 NuStep Workload: 5 Treatments bed mobility and transfers, ambulation, functional strengthening, stair training Assessment Current Status: Fair Progress improving mobility and endurance PT Short Term Goals Short Term Goals Time Frame: Mar 24, 2017 Gait (FIM): 5 Gait Distance Comment: 200' Gait Level of Assist: 5 Gait Assistive Device: FWW PT Blood Bank Booking Clerk Goals Blood Bank Booking Clerk Goals PT Blood Bank Booking Clerk Goals Time Frame: Apr 07, 2017 Transfers (B,C,W/C) (FIM): 6 Sit to Lying (QC): 6 (met) Lying-Sitting on Side/Bed(QC): 6 (met) Sit to Stand (QC): 6 Rollin (met) Roll Left to Right (QC): 6 (et) Car Transfer (QC): 4 Gait (FIM): 6 Distance: 400' Walk 10 feet (QC): 6 Walk 10ft-Uneven Surface(QC): 6 Walk 50ft with 2 Turns (QC): 6 Walk 150 ft (QC): 6 Gait Assistive Device: FWW Stairs (FIM): 2 # of Steps: 4 (met) 1 Step (curb) (QC): 4 (met) 4 Steps (QC): 4 (met) 12 Steps (QC): 88 Stairs Level Of Assist: 5 (met) Picking up an Object (QC): 88 PT Plan Problem List Problem List: Activity Tolerance, Functional Strength, Safety, Balance, Gait, Transfer Treatment/Plan Treatment Plan: Continue Plan of Care Treatment Plan: Bed Mobility, Education, Functional Activity [place], Functional Strength, Group Therapy, Gait, Safety, Therapeutic Exercise, Transfers Treatment Duration: Apr 07, 2017 Visits Per Week: 10-11 Minutes/Day (M-F): 60-90 Minutes/Day (Sat/Colon): 15-30 Safety Risks/Education Patient Education: Gait Training, Transfer Techniques, Steps, Safety Issues Teaching Recipient: Patient Teaching Methods: Demonstration, Discussion Response to Teaching: Reinforcement Needed Time/GCodes Time In: 1000 Time Out: 1100 Total Billed Treatment Time: 60 Total Billed Treatment 1 visit GT 30' EX 30' KIA MEDEL PT Mar 18, 2017 10:58
--- NOTE | 2017-03-18 15:09 | Occupational Ther Daily Note ---
OT Current Status-Daily Note Subjective Pt alert, sitting up in recliner. Pt agreed to therapy. No c/o pain at this time. Mental Status/Objective Patient Orientation: Person, Place, Time, Situation Functional [place] Measure 0=Not Assessed/NA 4=Minimal Assistance 1=Total Assistance 5=Supervision or Setup 2=Maximal Assistance 6=Modified [place] 3=Moderate Assistance 7=Complete [place] ADL-Treatment Functional [place] Measure 0=Not Assessed/NA 4=Minimal Assistance 1=Total Assistance 5=Supervision or Setup 2=Maximal Assistance 6=Modified [place] 3=Moderate Assistance 7=Complete IndependenceIRFPAI Quality Coding Scale 6 Independent with activity with or without an assistive device 5 Patient requires set up or clean up by helper. Patient completes activity by themselves 4 Supervision or touching assist (CGA). [place] provide cues , steadying assist 3 The helper provides less than half the effort to complete the activity 2 The helper provides more than half the effort to complete the activity 1 Dependent. The helper does all the effort to complete an activity 7 Patient refused to complete or attempt activity 9 The patient did not perform the activity before the current illness or injury 88 Not attempted due to Medical conditions or safety concerns Grooming (FIM): 5 (Standing at sink with supervision. Pt able to complete grooming.) Oral Hygiene (QC): 4 (Standing at sink with supervision. Pt able to complete grooming.) Bathing (FIM): 5 (Using grabbars, shower bench and hand held shower pt able to complete after set up.) Bathing Location: L Arm, R Arm, L Upper Leg, R Upper Leg, L Lower Leg ( including foot), R Lower Leg (including foot), Chest, Abdomen, Buttocks, Perineal Area Shower/Bathe Self (QC): 5 (Using grabbars, shower bench and hand held shower pt able to complete after set up.) Upper Body (FIM): 5 (After set up, pt is able to complete upper body dressing.) Upper Body Dressing (QC): 5 (After set up, pt is able to complete upper body dressing.) Lower Body Dressing (FIM): 5 (After set up, pt is able to complete lower body dressing.) Lower Body Dressing (QC): 5 (After set up, pt is able to complete lower body dressing.) On/Off Footwear (QC): 5 (After set up, pt is able to complete.) Toileting (FIM): 6 (Using grabbars, pt is able to complete.) Toileting Hygiene (QC): 6 (Using grabbars pt is able to complete.) Transfers (B, C, W/C) (FIM): 5 (Supervsion with transfers.) Toilet/Commode Transfer (FIM): 6 (Using FWW and grabbar pt is able to complete. ) Toilet Transfer (QC): 6 (Using FWW and grabbar pt is able to complete.) Shower Transfer(FIM): 5 (Supervision using grabbar, FWW, shower bench.) Other Treatment Pt then completed UE exercises with 2# hand wt. L shldr decrease AROM due to arthritis and increase pain with movement above 50*. Resistive clothespins completed with both hands. After therapy, pt sitting in recliner with call light/phone in reach. All needs met in. OT Short Term Goals Short Term Goals Time Frame: Mar 24, 2017 Bathing(FIM): 5 Upper Body Dressing(FIM): 5 Lower Body Dressing(FIM): 5 Toileting(FIM): 5 Toilet/Commode Transfer(FIM): 5 1=Demonstrate adherence to instructed precautions during ADL tasks. 2=Patient will verbalize/demonstrate understanding of assistive devices/ modifications for ADL. 3=Patient will improve strength/tolerance for activity to enable patient to perform ADL's. OT Snf Goals Red Lead Burner Goals Time Frame: Apr 07, 2017 Eating (FIM): 6 Eating (QC): 6 Groomin Oral Hygiene (QC): 6 Bathing(FIM): 6 Shower/Bathe Self (QC): 6 Upper Body Dressing(FIM): 6 Upper Body Dressing (QC): 6 Lower Body Dressing(FIM): 6 Lower Body Dressing (QC): 6 On/Off Footwear (QC): 6 Toileting(FIM): 6 Toileting Hygiene (QC): 6 Toilet/Commode Transfer(FIM): 6 Toilet/Commode Transfer (QC): 6 Shower Transfer(FIM): 6 Additional Goals: 1-Demonstrate ADL Tasks, 2-Verbalize Understanding, 3- ImproveStrength/[place] 1=Demonstrate adherence to instructed precautions during ADL tasks. 2=Patient will verbalize/demonstrate understanding of assistive devices/ modifications for ADL. 3=Patient will improve strength/tolerance for activity to enable patient to perform ADL's. OT Education/Plan Problem List/Assessment Pt to benefit from skilled OT intervention for ADL training, transfers, strengthening, and home safety education to maximize level of independence and allow safe return home. Discharge Recommendations Plan/Recommendations: Continue POC Treatment Plan/Plan of Care Patient would benefit from OT for education, treatment and training to promote independence in ADL's, mobility, safety and/or upper extremity function for ADL' s. Plan of Care: ADL Retraining, Functional Mobility, Group Exercise/Act as Ind, UE Funct Exercise/Act Treatment Duration: Apr 07, 2017 Visits Per Week: 10-12 Minutes/Day (M-F): 60-90 Minutes/Day (Sat/Colon): PRN Agreement: Yes Rehab Potential: Fair Time/GCodes Start Time: 09:00 Stop Time: 10:00 Total Time Billed (hr/min): 60 Billed Treatment Time 1 visit-ADL 3 (45 min) EX 1 (15 min) EDUARDO FAUSTIN Mar 18, 2017 15:09
--- NOTE | 2017-03-18 16:15 | Physical Therapy Daily Note ---
PT Daily Note-Current Subjective Patient agrees to PT. Pain Numeric Pain Scale: 0-No Pain Location: No Pain Reported Mental Status Patient Orientation: Normal For Age Transfers Functional [place] Measure 0=Not Assessed/NA 4=Minimal Assistance 1=Total Assistance 5=Supervision or Setup 2=Maximal Assistance 6=Modified [place] 3=Moderate Assistance 7=Complete IndependenceIRFPAI Quality Coding Scale 6 Independent with activity with or without an assistive device 5 Patient requires set up or clean up by helper. Patient completes activity by themselves 4 Supervision or touching assist (CGA). [place] provide cues , steadying assist 3 The helper provides less than half the effort to complete the activity 2 The helper provides more than half the effort to complete the activity 1 Dependent. The helper does all the effort to complete an activity 7 Patient refused to complete or attempt activity 9 The patient did not perform the activity before the current illness or injury 88 Not attempted due to Medical conditions or safety concerns Transfers (B, C, W/C) (FIM): 6 Scootin Rollin Roll Left to Right (QC): 6 Supine to/from Sit: 6 Sit to/from Stand: 6 Sit to Lying (QC): 6 Sit to Stand (QC): 6 Chair/Cjt-pl-Gkcay Xfer(QC): 6 Bed to/from Chair: 6 Gait Training Does the Patient Walk?: Yes Gait (FIM): 6 Distance (FIM): 3=150 ft Distance: 150' x 2 Walk 10 feet (QC): 5 Walk 50 ft with 2 Turns(QC): 5 Walk 150 ft (QC): 5 Gait Level of Assist: 6 Gait Assistive Device: FWW safe and functional Exercises Standing: Hip Abduction, Heel/toe raises, 3 way Ex=Flex, Abd, Ext, Mini squats Standing Reps: 20 2 sets Assessment Patient tolerated treatment well and returned to bed with needs met. PT Short Term Goals Short Term Goals Time Frame: Mar 24, 2017 Gait (FIM): 5 Gait Distance Comment: 200' Gait Level of Assist: 5 Gait Assistive Device: FWW PT Furniture Duster Goals [facility] Goals PT Furniture Duster Goals Time Frame: Apr 07, 2017 Transfers (B,C,W/C) (FIM): 6 Sit to Lying (QC): 6 (met) Lying-Sitting on Side/Bed(QC): 6 (met) Sit to Stand (QC): 6 Rollin (met) Roll Left to Right (QC): 6 (et) Car Transfer (QC): 4 Gait (FIM): 6 Distance: 400' Walk 10 feet (QC): 6 Walk 10ft-Uneven Surface(QC): 6 Walk 50ft with 2 Turns (QC): 6 Walk 150 ft (QC): 6 Gait Assistive Device: FWW Stairs (FIM): 2 # of Steps: 4 (met) 1 Step (curb) (QC): 4 (met) 4 Steps (QC): 4 (met) 12 Steps (QC): 88 Stairs Level Of Assist: 5 (met) Picking up an Object (QC): 88 PT Plan Treatment/Plan Treatment Plan: Continue Plan of Care Treatment Plan: Bed Mobility, Education, Functional Activity [place], Functional Strength, Group Therapy, Gait, Safety, Therapeutic Exercise, Transfers Treatment Duration: Apr 07, 2017 Visits Per Week: 10-11 Minutes/Day (M-F): 60-90 Minutes/Day (Sat/Colon): 15-30 Time/GCodes Time In: 1540 Time Out: 1610 Total Billed Treatment Time: 30 Total Billed Treatment 1 visit EX 20 min GT 10 min FERNANDA CHANDRA PT Mar 18, 2017 16:15
[2017-03-18 19:00] VITALS: BP_SYST 108; BP_SYST 94; BP_DIAS 58; BP_DIAS 75
[2017-03-18] MEDS: meTOproloL SUCCINATE 50 MG (TOPROL XL) TAB PO SCH (20:36)
[2017-03-19 05:18] VITALS: BP 117/67
[2017-03-19] MEDS: PANTOPRAZOLE 40 MG (PROTONIX) TAB PO SCH (06:08)
[2017-03-19] MEDS: RIVAROXABAN 15 MG TABLET (XARELTO) PO SCH ×2 (06:08→16:39)
--- NOTE | 2017-03-19 07:51 | PM & R (SOAP) Progress Note ---
Subjective Time Seen by Provider: 07:15 Subjective/Events-last exam Patient was seen in her room this AM Case discussed with RN this AM and SW yesterday afternoon Discharge has been moved up to 03/21/17 to home in [facility] with Family and [facility] Patient modifiied Independent for transfers Appreciate Cardiology note Objective Exam Last Set of Vital Signs Vital Signs Date Time Temp Pulse Resp B/P (MAP) Pulse Ox O2 Delivery O2 Flow Rate FiO2 03/19/17 05:18 98.2 84 16 117/67 97 03/18/17 05:58 2.50 Capillary Refill : Less Than 3 Seconds I&O Intake and Output 03/19/17 00:00 Intake Total 1020 ml Balance 1020 ml Intake Oral 1020 ml # Voids 6 General: Alert, Oriented X3, Cooperative, No Acute Distress HEENT: Atraumatic, PERRLA, EOMI, Mucous Memb Moist/[place] Neck: Supple, No JVD Lungs: Clear to Auscultation Heart: Regular Rate Abdomen: Normal Bowel Sounds, Soft, No Tenderness Extremities: No Edema Skin: Other (Fungal groin rash) Neuro: Other (Strength 4/5 overall) Results Lab Laboratory Tests 03/17/17 06:32: White Blood Count 6.2, Red Blood Count 4.68, Hemoglobin 12.2, Hematocrit 39, Mean Corpuscular Volume 83, Mean Corpuscular Hemoglobin 26, Mean Corpuscular Hemoglobin Concent 31L, Red Cell Distribution Width 15.7H, Platelet Count 319, Mean Platelet Volume 10.8H, Neutrophils (%) (Auto) 62, Lymphocytes (%) (Auto) 23 , Monocytes (%) (Auto) 11, Eosinophils (%) (Auto) 3, Basophils (%) (Auto) 0, Neutrophils # (Auto) 3.9, Lymphocytes # (Auto) 1.5, Monocytes # (Auto) 0.7, Eosinophils # (Auto) 0.2, Basophils # (Auto) 0.0, Sodium Level 140, Potassium Level 4.3, Chloride Level 106, Carbon Dioxide Level 24, Anion Gap 10, Blood Urea Nitrogen 12, Creatinine 0.79, Estimat Glomerular Filtration Rate > 60, BUN/ Creatinine Ratio 15, Glucose Level 103, Calcium Level 9.5, Total Bilirubin 0.6, Aspartate Amino Transf (AST/SGOT) 27, Alanine Aminotransferase (ALT/SGPT) 28, Alkaline Phosphatase 108, Total Protein 6.0L, Albumin 3.3 03/18/17 05:42: Thyroid Stimulating Hormone (TSH) 1.04 Assessment/Plan Assessment Disuse myopathy Left DVT with bilateral Pulm Emboli on Xeralto Htn Controlled with meds New onset A FIB meds being adjusted Fungal groin skin rash on diflucan and Topical Plan Continue PT/OT Team Conference held 03-17-17 See report for full functional update and POC and ELOS F/U with Dr connolly and Nighat prteodora Discharge reset for 03/21/17 Patient will have f/u with PCP and Cardiology on an outpatient basis AMANDA ANN MD Mar 19, 2017 07:51
[2017-03-19] MEDS ORDERED: METO-272 PO (07:57)
[2017-03-19] MEDS ORDERED: METO-274 PO (07:57)
[2017-03-19] MEDS ORDERED: CLOT15CR5 TOP (07:57)
[2017-03-19] MEDS: CLOTRIMAZOLE 1% CREAM (LOTRIMIN) 30 GM TOP SCH ×2 (08:27→20:17)
[2017-03-19] MEDS: fluCOnazole (DIFLUCAN) 100 MG TAB PO SCH (08:27)
[2017-03-19] MEDS: meTOprolol SUCCINATE 100 MG (TOPROL XL) TAB PO SCH (08:27)
--- NOTE | 2017-03-19 08:28 | Progress Note (SOAP) ---
Subjective Time Seen by Provider: 08:00 Subjective/Events-last exam disuse myopathy. she is feeling better. Patient to go home this Wednesday Objective Exam Vital Signs Date Time Temp Pulse Resp B/P (MAP) Pulse Ox O2 Delivery O2 Flow Rate FiO2 03/19/17 05:18 98.2 84 16 117/67 97 03/18/17 19:00 98.5 95 16 108/75 96 I & O 03/19/17 07:00 Intake Total 1070 ml Balance 1070 ml Capillary Refill : Less Than 3 Seconds General Appearance: No Apparent Distress, WD/WN Assessment/Plan Assessment/Plan Assess & Plan/Chief Complaint debility. Atrial fibrillation. DVT. Pulmonary emboli. Hypertension. . 03/18/17. Debility. Atrial fibrillation. Hypertension. DVT.. Patient alert. . 03/19/17. Debility. Atrial fibrillation. Hypertension DVT. Patient feeling better and will go home Wednesday Clinical Quality Measures DVT/VTE Risk/Contraindication: Risk Factor Score Per Nursin RFS Level Per Nursing on Admit: 4+=Very High OCTAVIO COREA DO Mar 19, 2017 08:28
--- NOTE | 2017-03-19 08:58 | Progress Note-Cardiology ---
Cardiology SOAP Progress Note Subjective: Up with OT. No c/o CP, palpitations, dyspnea, syncope or near syncope. Objective: I&O/Vital Signs Vital Sign - Last 12Hours 03/19/17 05:18 Temp 98.2 Pulse 84 Resp 16 B/P (MAP) 117/67 Pulse Ox 97 Intake and Output 03/19/17 00:00 Intake Total 720 ml Balance 720 ml Weight (Pounds): 147 Weight (Ounces): 4.8 Weight (Calculated Kilograms): [id number] Constitutional: appears stated age, No apparent distress, well-developed, well- nourished Respiratory: lungs clear to auscultation Cardiovascular: irregularly irregular, No JVD, S1 and S2 Gastrointestional: No tender, soft, audible bowel sounds, No spleenomegaly Extremities: No clubbing, No cyanosis, significant edema (2 (+) edema LLE) Neurologic/Psychiatric: alert, oriented x 3, power is 5/5 both on sides Skin: No rash, No ulcerations A/P: Assessment: A-fib: First diagnosed March 12, 2017 PE: Extensive bilat pulmonary embolism; including large proximal PE; Pulmonary emboli are identified in all five lobes. Peripheral lung densities are identified, for which infarcts are suspected. Per CTA at [facility] on March 13, 2017 Left lower extremity DVT - Non-occlusive thrombus in the femoral vein, anterior tibial, and posterior tibial veins. 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 Echo of 03/17/17 showed LVEF 65%, mild MR and TR, PASP approx 30 mmHg Plan: New finding of a-fib at the time of hospitalization on March 12, 2017. Continue long acting BB. We will continue OAC with Xarelto Echocardiogram results pending Plan is for her to discharge home on Wednesday Advise outpt f/u with us in a week Physician Assessment Physician Assessment Lungs: good bilat air entry Cor: irreg A&R * As documented in our note above that I updated at the time of this writing * Ok to discharge from card standpoint * Oupt card f/u advised JENNIFER RAI COLOR BLENDER Mar 19, 2017 08:58 OANH DON MD [facility] Mar 19, 2017 13:41
--- NOTE | 2017-03-19 09:36 | Individualized Plan of Care ---
Individualized Plan of Care Rehab Nursing IPOC Order Admission Date Mar 16, 2017 at 15:48 Current Orders Orders Patient Visit (03/18/17 ) Gait Training, Ea 15 Min (03/18/17 ) Exercise Therap, Ea 15 Min (03/18/17 ) Patient Visit (03/18/17 ) Exercise Therap, Ea 15 Min (03/18/17 ) Gait Training, Ea 15 Min (03/18/17 ) Attending D/C Order-Pending (03/19/17 07:53) Rehab Nursing Orders: Diseage Management, Edu in Press Rel Techn, Hydration Management, Nutrition Management Toilet every (bladder): (hrs): 2 hours while awake prn PT IPOC Problem List: Activity Tolerance, Functional Strength, Safety, Balance, Gait, Transfer Treatment Plan: Continue Plan of Care Bed Mobility, Education, Functional Activity [place], Functional Strength, Group Therapy, Gait, Safety, Therapeutic Exercise, Transfers Treatment Duration: Apr 07, 2017 Visits Per Week: 10-11 Minutes/Day (M-F): 60-90 Minutes/Day (Sat/Colon): 15-30 OT IPOC Problems: Decreased Activ Tolerance, Decreased UE Strength, Dependent Transfers , Impaired Self-Care Skills OT Problems Pt to benefit from skilled OT intervention for ADL training, transfers, strengthening, and home safety education to maximize level of independence and allow safe return home. 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 Medical Prognosis: good Anticipated Length of Stay: 03-21-17 Rehab Goals Modified Independent for adls and mobility skills Anticipated discharge destinat: Home with family and [facility] AMANDA ANN MD Mar 19, 2017 09:36
--- NOTE | 2017-03-19 10:19 | Occupational Ther Daily Note ---
OT Current Status-Daily Note Subjective Pt eating lunch sitting in recliner. Pt agreed to therapy. No c/o pain. Mental Status/Objective Patient Orientation: Person, Place, Time, Situation Functional [place] Measure 0=Not Assessed/NA 4=Minimal Assistance 1=Total Assistance 5=Supervision or Setup 2=Maximal Assistance 6=Modified [place] 3=Moderate Assistance 7=Complete [place] ADL-Treatment Functional [place] Measure 0=Not Assessed/NA 4=Minimal Assistance 1=Total Assistance 5=Supervision or Setup 2=Maximal Assistance 6=Modified [place] 3=Moderate Assistance 7=Complete IndependenceIRFPAI Quality Coding Scale 6 Independent with activity with or without an assistive device 5 Patient requires set up or clean up by helper. Patient completes activity by themselves 4 Supervision or touching assist (CGA). [place] provide cues , steadying assist 3 The helper provides less than half the effort to complete the activity 2 The helper provides more than half the effort to complete the activity 1 Dependent. The helper does all the effort to complete an activity 7 Patient refused to complete or attempt activity 9 The patient did not perform the activity before the current illness or injury 88 Not attempted due to Medical conditions or safety concerns Other Treatment Pt was able to set self up and use regular utensils to cook food and feed self. Pt completed arm bike in room 15 min at 15 ballard resistance to increase strength and endurance for daily functional tasks. Pt took 2 recovery breaks during task. Discussed pt's home environment for safe transfers and daily tasks that will be completed when pt is home. Pt stated that she had to take care of her and that she would do fine in her house. Pt states that she already has the AE for bathing and her house is set up fine for her. After therapy, pt sitting in recliner with call light/phone in reach. All needs met in room. Education OT Patient Education: Safety issues, Use of adapted equipment Teaching Recipient: Patient Teaching Methods: Discussion Response to Teaching: Verbalize Understanding OT Short Term Goals Short Term Goals Time Frame: Mar 24, 2017 Bathing(FIM): 5 Upper Body Dressing(FIM): 5 Lower Body Dressing(FIM): 5 Toileting(FIM): 5 Toilet/Commode Transfer(FIM): 5 1=Demonstrate adherence to instructed precautions during ADL tasks. 2=Patient will verbalize/demonstrate understanding of assistive devices/ modifications for ADL. 3=Patient will improve strength/tolerance for activity to enable patient to perform ADL's. OT Power Electronics Engineer Goals Correction Goals Time Frame: Apr 07, 2017 Eating (FIM): 6 Eating (QC): 6 Groomin Oral Hygiene (QC): 6 Bathing(FIM): 6 Shower/Bathe Self (QC): 6 Upper Body Dressing(FIM): 6 Upper Body Dressing (QC): 6 Lower Body Dressing(FIM): 6 Lower Body Dressing (QC): 6 On/Off Footwear (QC): 6 Toileting(FIM): 6 Toileting Hygiene (QC): 6 Toilet/Commode Transfer(FIM): 6 Toilet/Commode Transfer (QC): 6 Shower Transfer(FIM): 6 Additional Goals: 1-Demonstrate ADL Tasks, 2-Verbalize Understanding, 3- ImproveStrength/[place] 1=Demonstrate adherence to instructed precautions during ADL tasks. 2=Patient will verbalize/demonstrate understanding of assistive devices/ modifications for ADL. 3=Patient will improve strength/tolerance for activity to enable patient to perform ADL's. OT Education/Plan Problem List/Assessment Pt to benefit from skilled OT intervention for ADL training, transfers, strengthening, and home safety education to maximize level of independence and allow safe return home. Discharge Recommendations Plan/Recommendations: Continue POC Treatment Plan/Plan of Care Patient would benefit from OT for education, treatment and training to promote independence in ADL's, mobility, safety and/or upper extremity function for ADL' s. Plan of Care: ADL Retraining, Functional Mobility, Group Exercise/Act as Ind, UE Funct Exercise/Act Treatment Duration: Apr 07, 2017 Visits Per Week: 10-12 Minutes/Day (M-F): 60-90 Minutes/Day (Sat/Colon): PRN Agreement: Yes Rehab Potential: Fair Time/GCodes Start Time: 12:20 Stop Time: 12:50 Total Time Billed (hr/min): 30 Billed Treatment Time 1 visit-EX 1 (15 min) FA 1 (15 min) Late entry for 03/18/2017 EDUARDO FAUSTIN Mar 19, 2017 10:19
--- NOTE | 2017-03-19 11:09 | Physical Therapy Daily Note ---
PT Daily Note-Current Subjective Pt. shares that she realizes she was very ill and very fortunate to survive. Shares that she lives in a home with 2-3 steps to negotiate but that her dtr lives 2 blocks away and will be there often. "I am not afraid and never want to leave my home" Pain Numeric Pain Scale: 0-No Pain Comment: c/o only that she feels she needs to gain more strength Mental Status Patient Orientation: Normal For Age Transfers Functional [place] Measure 0=Not Assessed/NA 4=Minimal Assistance 1=Total Assistance 5=Supervision or Setup 2=Maximal Assistance 6=Modified [place] 3=Moderate Assistance 7=Complete IndependenceIRFPAI Quality Coding Scale 6 Independent with activity with or without an assistive device 5 Patient requires set up or clean up by helper. Patient completes activity by themselves 4 Supervision or touching assist (CGA). [place] provide cues , steadying assist 3 The helper provides less than half the effort to complete the activity 2 The helper provides more than half the effort to complete the activity 1 Dependent. The helper does all the effort to complete an activity 7 Patient refused to complete or attempt activity 9 The patient did not perform the activity before the current illness or injury 88 Not attempted due to Medical conditions or safety concerns Transfers (B, C, W/C) (FIM): 6 Scootin Rollin Supine to/from Sit: 6 Sit to/from Stand: 6 Gait Training Does the Patient Walk?: Yes Gait (FIM): 6 Distance (FIM): 3=150 ft (x3) Walk 10 feet (QC): 6 Walk 50 ft with 2 Turns(QC): 6 Walk 150 ft (QC): 6 Walking 10ft/uneven surface-QC: 6 Gait Level of Assist: 6 Gait Persons Needed: 0 Gait Assistive Device: FWW no LOB, good technique and safety awareness Stair Training Stair Training: Handrails/: 2 handrails Stairs (FIM): 5 #of Steps: 12 1 Step (curb) (QC): 5 4 Steps (QC): 5 12 Steps (QC): 5 Stairs: Pattern: Step to Level of Assist: 5 needs SBA only, discussed managing FWW on steps, all went well, has routine from when her was living and used steps and FWW Balance Picking up an Object (QC): 5 Exercises Supine Ex: Bridging, Ankle pumps, Quad Set, Rolling, Glut sets, Lower trunk rotation, Heel Slides, Short Arc Quads, Scooting, Straight leg raise, Hip abd/ add Supine Reps: 15 NuStep Minutes: 10 NuStep Workload: 2 Treatments toilets Indep Assessment Current Status: Excellent Progress meets goals PT Short Term Goals Short Term Goals Time Frame: Mar 24, 2017 Gait (FIM): 5 Gait Distance Comment: 200' Gait Level of Assist: 5 Gait Assistive Device: FWW PT Alf Goals Exercise Planner Goals PT Exercise Planner Goals Time Frame: Apr 07, 2017 Transfers (B,C,W/C) (FIM): 6 Sit to Lying (QC): 6 (met) Lying-Sitting on Side/Bed(QC): 6 (met) Sit to Stand (QC): 6 Rollin Roll Left to Right (QC): 6 (et) Car Transfer (QC): 4 Gait (FIM): 6 Distance: 400' Walk 10 feet (QC): 6 Walk 10ft-Uneven Surface(QC): 6 Walk 50ft with 2 Turns (QC): 6 Walk 150 ft (QC): 6 Gait Assistive Device: FWW Stairs (FIM): 2 # of Steps: 4 (met) 1 Step (curb) (QC): 4 (met) 4 Steps (QC): 4 (met) 12 Steps (QC): 88 Stairs Level Of Assist: 5 (met) Picking up an Object (QC): 88 PT Plan Treatment/Plan Treatment Plan: Continue Plan of Care Treatment Plan: Bed Mobility, Education, Functional Activity [place], Functional Strength, Group Therapy, Gait, Safety, Therapeutic Exercise, Transfers Treatment Duration: Apr 07, 2017 Visits Per Week: 10-11 Minutes/Day (M-F): 60-90 Minutes/Day (Sat/Colon): 15-30 Safety Risks/Education Patient Education: Gait Training, Transfer Techniques, Steps, Correct Positioning, Disease Process, Safety Issues Teaching Recipient: Patient Teaching Methods: Demonstration, Discussion Response to Teaching: Verbalize Understanding, Return Demonstration, Reinforcement Needed (walker up down steps) Time/GCodes Time In: 1000 Time Out: 1100 Total Billed Treatment Time: 60 Total Billed Treatment 1,FA15m,EX25m,GT20 G Codes Necessary: CANDACE Ashley NEWSPAPER DELIVERY COUNSELOR Mar 19, 2017 11:09
--- NOTE | 2017-03-19 12:50 | Occupational Ther Daily Note ---
OT Current Status-Daily Note Subjective Pt sitting in chair, agrees to treatment. Pt states she feels ready to go home this weekend. Mental Status/Objective Functional [place] Measure 0=Not Assessed/NA 4=Minimal Assistance 1=Total Assistance 5=Supervision or Setup 2=Maximal Assistance 6=Modified [place] 3=Moderate Assistance 7=Complete [place] ADL-Treatment Sit to stand with modified independence. Pt retrieved clothing from closet with FWW for balance. To restroom with FWW, no LOB noted. Toilet transfer completed with modified independence. Pt able to complete toileting hygiene and clothing management with modified independence. Transfer to walk in shower with supervision using grab bar for safety. [place] clothing without assistance. Pt completed bathing with hand held shower. Assist required to manage faucet. Pt able to wash all areas. Pt did not use soap secondary to stating it makes her skin too dry. Pt able to dry all areas without assist. Don pullover shirt with modified independence. Pt donned Depends and pants with modified independence. Stood with good balance for pant hike. Pt able to don socks without assistance. Pt stood at sink for grooming tasks. Brushed hair and completed oral care with modified independence. Functional [place] Measure 0=Not Assessed/NA 4=Minimal Assistance 1=Total Assistance 5=Supervision or Setup 2=Maximal Assistance 6=Modified [place] 3=Moderate Assistance 7=Complete IndependenceIRFPAI Quality Coding Scale 6 Independent with activity with or without an assistive device 5 Patient requires set up or clean up by helper. Patient completes activity by themselves 4 Supervision or touching assist (CGA). [place] provide cues , steadying assist 3 The helper provides less than half the effort to complete the activity 2 The helper provides more than half the effort to complete the activity 1 Dependent. The helper does all the effort to complete an activity 7 Patient refused to complete or attempt activity 9 The patient did not perform the activity before the current illness or injury 88 Not attempted due to Medical conditions or safety concerns Eating (FIM): 6 (by report. ) Eating (QC): 6 Grooming (FIM): 6 Oral Hygiene (QC): 6 Bathing (FIM): 5 (set up) Shower/Bathe Self (QC): 5 Upper Body (FIM): 6 Upper Body Dressing (QC): 6 Lower Body Dressing (FIM): 6 Lower Body Dressing (QC): 6 On/Off Footwear (QC): 6 Toileting (FIM): 6 Toileting Hygiene (QC): 6 Toilet/Commode Transfer (FIM): 6 Toilet Transfer (QC): 6 Shower Transfer(FIM): 5 Other Treatment Pt performed gait to therapy gym with FWW, no LOB noted. Graded clothespin activity with bilateral hands to increase rn gastroenterology/pinch strength. Pt performed tabletop peg activity with bilateral UE with 1# weights in place to increase strength and coordination. Pt required one rest break during task secondary to fatigue. Pt completed fine motor task with nuts and bolts to increase coordination/manipulation skills. Pt completed biceps curls and triceps extension exercises x20 reps with red theraband to increase strength needed for ADLs and transfers. Pt performed sit to stand x10 reps with modified independence to increase strength for transfers. Pt states she has a tub shower at home. Pt demonstrated ability to transfer into/ out of tub with supervision using grab bar. Pt returned to room, sitting in chair with needs met after session. OT Short Term Goals Short Term Goals Time Frame: Mar 24, 2017 Bathing(FIM): 5 Upper Body Dressing(FIM): 5 Lower Body Dressing(FIM): 5 Toileting(FIM): 5 Toilet/Commode Transfer(FIM): 5 1=Demonstrate adherence to instructed precautions during ADL tasks. 2=Patient will verbalize/demonstrate understanding of assistive devices/ modifications for ADL. 3=Patient will improve strength/tolerance for activity to enable patient to perform ADL's. OT Customer Service Driver Goals Customer Service Driver Goals Time Frame: Apr 07, 2017 Eating (FIM): 6 (met 03/19/17) Eating (QC): 6 (6-MET) Groomin (met 03/19/17) Oral Hygiene (QC): 6 (6-MET) Bathing(FIM): 6 (not met) Shower/Bathe Self (QC): 6 (5(set up)-not met) Upper Body Dressing(FIM): 6 (met 03/19/17) Upper Body Dressing (QC): 6 (6-MET) Lower Body Dressing(FIM): 6 (met 03/19/17) Lower Body Dressing (QC): 6 (6-MET) On/Off Footwear (QC): 6 (6-MET) Toileting(FIM): 6 (met 03/19/17) Toileting Hygiene (QC): 6 (6-MET) Toilet/Commode Transfer(FIM): 6 (met 03/19/17) Toilet/Commode Transfer (QC): 6 (6-MET) Shower Transfer(FIM): 6 (not met) Additional Goals: 1-Demonstrate ADL Tasks, 2-Verbalize Understanding, 3- ImproveStrength/[place] 1=Demonstrate adherence to instructed precautions during ADL tasks. 2=Patient will verbalize/demonstrate understanding of assistive devices/ modifications for ADL. 3=Patient will improve strength/tolerance for activity to enable patient to perform ADL's. OT Education/Plan Problem List/Assessment Pt to benefit from skilled OT intervention for ADL training, transfers, strengthening, and home safety education to maximize level of independence and allow safe return home. Discharge Recommendations Plan/Recommendations: Continue POC Treatment Plan/Plan of Care Patient would benefit from OT for education, treatment and training to promote independence in ADL's, mobility, safety and/or upper extremity function for ADL' s. Plan of Care: ADL Retraining, Functional Mobility, Group Exercise/Act as Ind, UE Funct Exercise/Act Treatment Duration: Apr 07, 2017 Visits Per Week: 10-12 Minutes/Day (M-F): 60-90 Minutes/Day (Sat/Colon): PRN Agreement: Yes Rehab Potential: Fair Time/GCodes Start Time: 08:00 Stop Time: 09:30 Total Time Billed (hr/min): 90 Billed Treatment Time 1 visit, ADLx3(45minutes), EXx3(45minutes) NGHIA RAMIREZ OT Mar 19, 2017 12:50
--- NOTE | 2017-03-19 13:36 | Physical Therapy Daily Note ---
PT Daily Note-Current Subjective Pt. states she had planned on going to group "but they brought my tray in here so I thought they had changed their minds". This CERTIFIED PARALEGAL apologized and explained there had been a misunderstanding. Pt. states she had declined group yesterday b /c of her hearing problems but was willing to go to a [facility] lunch group. Pt. states she has a cane at home but it does not have a " hurry" cane attachment on it. Pt. states she really like the attachment and wants her children to look for one on line for her Pain Numeric Pain Scale: 0-No Pain Mental Status Patient Orientation: Normal For Age Transfers Functional [place] Measure 0=Not Assessed/NA 4=Minimal Assistance 1=Total Assistance 5=Supervision or Setup 2=Maximal Assistance 6=Modified [place] 3=Moderate Assistance 7=Complete IndependenceIRFPAI Quality Coding Scale 6 Independent with activity with or without an assistive device 5 Patient requires set up or clean up by helper. Patient completes activity by themselves 4 Supervision or touching assist (CGA). [place] provide cues , steadying assist 3 The helper provides less than half the effort to complete the activity 2 The helper provides more than half the effort to complete the activity 1 Dependent. The helper does all the effort to complete an activity 7 Patient refused to complete or attempt activity 9 The patient did not perform the activity before the current illness or injury 88 Not attempted due to Medical conditions or safety concerns All TRFs bed, chair, and toilet mod I Gait Training Does the Patient Walk?: Yes Gait (FIM): 6 Distance (FIM): 3=150 ft (x2) Gait Assistive Device: Cane Single Point pt. uses cane at home but feels she still profits from the walker here as far as energy conservation etc. But with this CERTIFIED PARALEGAL for Rx pt. used SPC with hurry attachment and did very well.side step, retro etc no LOB, pt uses cane in right hand but has good sequence etc Exercises Supine Ex: Bridging, Ankle pumps, Quad Set, Rolling, Glut sets, Heel Slides, Short Arc Quads, Scooting, Straight leg raise, Hip abd/add Supine Reps: 15 sidelying clam shells bilat x 15 Assessment Current Status: Excellent Progress PT Short Term Goals Short Term Goals Time Frame: Mar 24, 2017 Gait (FIM): 5 Gait Distance Comment: 200' Gait Level of Assist: 5 Gait Assistive Device: FWW PT Car Unloader Helper Goals Car Unloader Helper Goals PT Car Unloader Helper Goals Time Frame: Apr 07, 2017 Transfers (B,C,W/C) (FIM): 6 Sit to Lying (QC): 6 (met) Lying-Sitting on Side/Bed(QC): 6 (met) Sit to Stand (QC): 6 Rollin Roll Left to Right (QC): 6 (et) Car Transfer (QC): 4 Gait (FIM): 6 Distance: 400' Walk 10 feet (QC): 6 Walk 10ft-Uneven Surface(QC): 6 Walk 50ft with 2 Turns (QC): 6 Walk 150 ft (QC): 6 Gait Assistive Device: FWW Stairs (FIM): 2 # of Steps: 4 (met) 1 Step (curb) (QC): 4 (met) 4 Steps (QC): 4 (met) 12 Steps (QC): 88 Stairs Level Of Assist: 5 (met) Picking up an Object (QC): 88 PT Plan Treatment/Plan Treatment Plan: Continue Plan of Care Treatment Plan: Bed Mobility, Education, Functional Activity [place], Functional Strength, Group Therapy, Gait, Safety, Therapeutic Exercise, Transfers Treatment Duration: Apr 07, 2017 Visits Per Week: 10-11 Minutes/Day (M-F): 60-90 Minutes/Day (Sat/Colon): 15-30 Safety Risks/Education Patient Education: Gait Training, Transfer Techniques Teaching Recipient: Patient Teaching Methods: Demonstration, Discussion Response to Teaching: Verbalize Understanding, Return Demonstration, Reinforcement Needed Time/GCodes Time In: 1255 Time Out: 1325 Total Billed Treatment Time: 30 Total Billed Treatment 1,GT20m,EX10m G Codes Necessary: CANDACE Ashley CERTIFIED PARALEGAL Mar 19, 2017 13:36
[2017-03-19 17:51] VITALS: BP 117/85
--- NOTE | 2017-03-19 17:55 | ECHOCARDIOGRAPHY REPORT ---
DATE OF SERVICE: 03/17/2017 ECHOCARDIOGRAM CLINICAL DIAGNOSIS: Atrial fibrillation. MEASUREMENTS: Aortic root 3, left atrium 3.6, LV diameter diastolic 4.4, IVF thickness assed at 0.8, LVPW thickness assessed at 0.9. DESCRIPTION: Two-dimensional echocardiography shows normal global left ventricular systolic function with normal regional wall motion. Aortic, mitral and tricuspid valve leaflets show good leaflet excursion. Aortic valve appears to be trileaflet. Doppler imaging shows mild mitral and tricuspid regurgitation. There is no Doppler evidence of any significant valvular stenosis. Pulmonary artery systolic pressure is estimated at approximately 30 mmHg. There is no evidence of any significant intracardiac shunt on this transthoracic echocardiographic study. Inferior vena cava does not appear dilated and does exhibit inspiratory collapse. CONCLUSIONS: 1. Normal global left ventricular systolic function with ejection fraction approximately 65%. 2. Mild mitral and tricuspid regurgitation. 3. No evidence of significant valvular stenosis. 4. Pulmonary artery systolic pressure is estimated at approximately 30 mmHg. Job ID: [id number] DocumentID: [id number] Dictated Date: 03/19/2017 13:22:09 911 Emergency Dispatcher Date: 03/19/2017 14:52:34 Dictated By: OANH DON MD, MA, FACP, FACC,
[2017-03-19] MEDS: meTOproloL SUCCINATE 50 MG (TOPROL XL) TAB PO SCH (20:17)
[2017-03-20] MEDS: RIVAROXABAN 15 MG TABLET (XARELTO) PO SCH ×2 (06:02→17:26)
[2017-03-20] MEDS: PANTOPRAZOLE 40 MG (PROTONIX) TAB PO SCH (06:02)
[2017-03-20 06:08] VITALS: BP 115/74
[2017-03-20] MEDS: fluCOnazole (DIFLUCAN) 100 MG TAB PO SCH (09:02)
[2017-03-20] MEDS: meTOprolol SUCCINATE 100 MG (TOPROL XL) TAB PO SCH (09:02)
--- NOTE | 2017-03-20 09:54 | Occupational Ther Daily Note ---
OT Current Status-Daily Note Subjective "I took a shower yesterday and I am not taking one today. No I don't want to change clothing I am staying in this all day. Do I have to do something today, I will be so glad to go home tomorrow then I can get up when I want to." Pain Numeric Pain Scale: 0-No Pain Appearance Patient supine in bed upon OT arrival. Patient initially refusing therapy but with encouragement agreed to OT but made the above statements. Mental Status/Objective Patient Orientation: Person, Place, Situation Functional [place] Measure 0=Not Assessed/NA 4=Minimal Assistance 1=Total Assistance 5=Supervision or Setup 2=Maximal Assistance 6=Modified [place] 3=Moderate Assistance 7=Complete [place] ADL-Treatment Patient up ad elver now with anticipation of discharge tomorrow. Ambulated to bathroom with roller walker to do toileting and hygiene independently. Brushed hair and applied lotion to the legs due to dryness. Patient was able to don slippers independently before coming to stand to ambulate. She had some difficulty getting out of bed but reported her own bed at home is not as difficult. Functional [place] Measure 0=Not Assessed/NA 4=Minimal Assistance 1=Total Assistance 5=Supervision or Setup 2=Maximal Assistance 6=Modified [place] 3=Moderate Assistance 7=Complete IndependenceIRFPAI Quality Coding Scale 6 Independent with activity with or without an assistive device 5 Patient requires set up or clean up by helper. Patient completes activity by themselves 4 Supervision or touching assist (CGA). [place] provide cues , steadying assist 3 The helper provides less than half the effort to complete the activity 2 The helper provides more than half the effort to complete the activity 1 Dependent. The helper does all the effort to complete an activity 7 Patient refused to complete or attempt activity 9 The patient did not perform the activity before the current illness or injury 88 Not attempted due to Medical conditions or safety concerns Other Treatment In preparation for discharge to home, significant time spent discussing concerns in returning to live independently in her own home. Discussed situation with bathroom as she will be entering and exiting a tub by herself. Reports she feels comfortable with this activity as the bathtub has grab bars and bench. She does not bath in the tub often. She will be preparing some food at home and doing cabinet maker. Discussed work simplification techniques with planned rest during the day. She reported she uses [employer] of the time , which delivers groceries to the home. Patient no longer drives so discussed her daughter assuming grocery shopping and running errands as she has in the past. The patient expressed a fear of falling at home and is currently using a roller walker. She expressed a desire to have slides or tennis balls applied to the legs to make moving the walker much easier. This was done and worked well as she was observed ambulating about the room independently. The patient was able to identify several things she can now do that initially she could not, i.e. scoot up in the recliner and the bed, ambulate with the walker and feel much safer in doing so. I questioned patient as to compression hose for the legs due to some swelling about the left ankle. She stated she had not worn these in the past and she thought the doctor was going to order these for her. Discussed the benefits of the compression and the need to wear then during the day. The patient became tearful several times during our conversation when discussing the of her and a young grand son many years ago. She stated that due to the health of her , their home had already been adapted to allow easy access to the first floor. She has railings at the steps to enter the home but once in, no steps are required of her. Again, she felt much safer with the walker than the cane. Prior to leaving, OT assisted her in ordering her lunch as she reported she can not hear on the phone in her room but she is able to use the phone at home without problems. Education OT Patient Education: Energy conservation, Modified ADL techniques, Safety issues Teaching Recipient: Patient Teaching Methods: Discussion Response to Teaching: Verbalize Understanding OT Short Term Goals Short Term Goals Time Frame: Mar 24, 2017 Bathing(FIM): 5 Upper Body Dressing(FIM): 5 Lower Body Dressing(FIM): 5 Toileting(FIM): 5 Toilet/Commode Transfer(FIM): 5 1=Demonstrate adherence to instructed precautions during ADL tasks. 2=Patient will verbalize/demonstrate understanding of assistive devices/ modifications for ADL. 3=Patient will improve strength/tolerance for activity to enable patient to perform ADL's. OT Manager Of Creative Services Goals Group Home Goals Time Frame: Apr 07, 2017 Eating (FIM): 6 (met 6/9/17) Eating (QC): 6 (6-MET) Groomin (met 03/19/17) Oral Hygiene (QC): 6 (6-MET) Bathing(FIM): 6 (not met) Shower/Bathe Self (QC): 6 (5(set up)-not met) Upper Body Dressing(FIM): 6 (met 03/19/17) Upper Body Dressing (QC): 6 (6-MET) Lower Body Dressing(FIM): 6 (met 03/19/17) Lower Body Dressing (QC): 6 (6-MET) On/Off Footwear (QC): 6 (6-MET) Toileting(FIM): 6 (met 03/19/17) Toileting Hygiene (QC): 6 (6-MET) Toilet/Commode Transfer(FIM): 6 (met 03/19/17) Toilet/Commode Transfer (QC): 6 (6-MET) Shower Transfer(FIM): 6 (not met) Additional Goals: 1-Demonstrate ADL Tasks, 2-Verbalize Understanding, 3- ImproveStrength/[place] 1=Demonstrate adherence to instructed precautions during ADL tasks. 2=Patient will verbalize/demonstrate understanding of assistive devices/ modifications for ADL. 3=Patient will improve strength/tolerance for activity to enable patient to perform ADL's. OT Education/Plan Problem List/Assessment Pt to benefit from skilled OT intervention for ADL training, transfers, strengthening, and home safety education to maximize level of independence and allow safe return home. Discharge Recommendations Plan/Recommendations: Continue POC Treatment Plan/Plan of Care Patient would benefit from OT for education, treatment and training to promote independence in ADL's, mobility, safety and/or upper extremity function for ADL' s. Plan of Care: ADL Retraining, Functional Mobility, Group Exercise/Act as Ind, UE Funct Exercise/Act Treatment Duration: Apr 07, 2017 Visits Per Week: 10-12 Minutes/Day (M-F): 60-90 Minutes/Day (Sat/Colon): PRN Agreement: Yes Rehab Potential: Fair Time/GCodes Start Time: 08:10 Stop Time: 09:40 Total Time Billed (hr/min): 90 Billed Treatment Time Visit, ADL x 1, Fa x 5 MAC [place] OT Mar 20, 2017 09:54
[2017-03-20] MEDS: CLOTRIMAZOLE 1% CREAM (LOTRIMIN) 30 GM TOP SCH ×2 (11:13→20:45)
--- NOTE | 2017-03-20 12:48 | Physical Therapy Daily Note ---
PT Daily Note-Current Subjective Pt. states she is a bit put off at having to have therapies this morning. States she is tired . This CAR STOWER impresses that she will need to remain active at home to maintain and improve her function and health. Pt. then agrees she will walk and move about if she can go outside. Pain Numeric Pain Scale: 4 Location: Right Location Body Site: Shoulder Pain Description: Ache Comment: pt. declines using arm portion of Nustep secoindary to shoulder pain Mental Status Patient Orientation: Normal For Age pt. very hard of hearing, hearing aides, needed to change batteries this date Transfers Functional [place] Measure 0=Not Assessed/NA 4=Minimal Assistance 1=Total Assistance 5=Supervision or Setup 2=Maximal Assistance 6=Modified [place] 3=Moderate Assistance 7=Complete IndependenceIRFPAI Quality Coding Scale 6 Independent with activity with or without an assistive device 5 Patient requires set up or clean up by helper. Patient completes activity by themselves 4 Supervision or touching assist (CGA). [place] provide cues , steadying assist 3 The helper provides less than half the effort to complete the activity 2 The helper provides more than half the effort to complete the activity 1 Dependent. The helper does all the effort to complete an activity 7 Patient refused to complete or attempt activity 9 The patient did not perform the activity before the current illness or injury 88 Not attempted due to Medical conditions or safety concerns Transfers (B, C, W/C) (FIM): 6 Scootin Rollin Roll Left to Right (QC): 6 Supine to/from Sit: 6 Sit to/from Stand: 6 Sit to Lying (QC): 6 Sit to Stand (QC): 6 Chair/[id number] Xfer(QC): 6 Bed to/from Chair: 6 Gait Training Does the Patient Walk?: Yes Gait (FIM): 6 Distance (FIM): 3=150 ft (700) Gait Level of Assist: 6 Gait Persons Needed: 0 Gait Assistive Device: FWW up ad elver in room and unit, for Rx pt. ambulated outside on ramp up and down as well as over many thresholds and on bumpy sidewalk terrain, over cracks etc.all without incident Exercises Supine Ex: Bridging, Ankle pumps, Quad Set, Rolling, Glut sets, Heel Slides, Short Arc Quads, Scooting, Straight leg raise, Hip abd/add Supine Reps: 15 NuStep Minutes: 12 NuStep Workload: 3 Treatments tolieted and washed hands all mod I Assessment Current Status: Good Progress pt. appears somewhat unmotivated and it was impressed upon her that it will be very important to have exercise and gait on regular basis after DC to home PT Short Term Goals Short Term Goals Time Frame: Mar 24, 2017 Gait (FIM): 5 Gait Distance Comment: 200' Gait Level of Assist: 5 Gait Assistive Device: FWW PT Retirement Goals Retirement Goals PT User Experience Architect Goals Time Frame: Apr 07, 2017 Transfers (B,C,W/C) (FIM): 6 Sit to Lying (QC): 6 (met) Lying-Sitting on Side/Bed(QC): 6 (met) Sit to Stand (QC): 6 Rollin Roll Left to Right (QC): 6 (et) Car Transfer (QC): 4 Gait (FIM): 6 Distance: 400' Walk 10 feet (QC): 6 Walk 10ft-Uneven Surface(QC): 6 Walk 50ft with 2 Turns (QC): 6 Walk 150 ft (QC): 6 Gait Assistive Device: FWW Stairs (FIM): 2 # of Steps: 4 (met) 1 Step (curb) (QC): 4 (met) 4 Steps (QC): 4 (met) 12 Steps (QC): 88 Stairs Level Of Assist: 5 (met) Picking up an Object (QC): 88 PT Plan Treatment/Plan Treatment Plan: Continue Plan of Care, Discontinue PT, goals met Treatment Plan: Bed Mobility, Education, Functional Activity [place], Functional Strength, Group Therapy, Gait, Safety, Therapeutic Exercise, Transfers Treatment Duration: Apr 07, 2017 Visits Per Week: 10-11 Minutes/Day (M-F): 60-90 Minutes/Day (Sat/Colon): 15-30 Safety Risks/Education Patient Education: Gait Training, Transfer Techniques, Correct Positioning, Disease Process, Safety Issues Teaching Recipient: Patient Teaching Methods: Demonstration, Discussion Response to Teaching: Verbalize Understanding, Return Demonstration, Reinforcement Needed Time/GCodes Time In: 1030 Time Out: 1200 Total Billed Treatment Time: 90 Total Billed Treatment 1,EX30m,GT30m,FA30m G Codes Necessary: CANDACE Ashley CAR STOWER Mar 20, 2017 12:48
[2017-03-20 18:27] VITALS: BP 116/74
[2017-03-20] MEDS: meTOproloL SUCCINATE 50 MG (TOPROL XL) TAB PO SCH (20:43)
[2017-03-21 06:00] VITALS: BP 133/76
[2017-03-21] MEDS: RIVAROXABAN 15 MG TABLET (XARELTO) PO SCH (06:01)
[2017-03-21] MEDS: PANTOPRAZOLE 40 MG (PROTONIX) TAB PO SCH (06:01)
[2017-03-21] MEDS: meTOprolol SUCCINATE 100 MG (TOPROL XL) TAB PO SCH (08:21)
[2017-03-21] MEDS: CLOTRIMAZOLE 1% CREAM (LOTRIMIN) 30 GM TOP SCH (08:21)
[2017-03-21 12:21] VITALS: BP 133/76
--- NOTE | 2017-03-22 08:38 | Therapy Team Discharge Summary ---
Therapy Discharge Summary Discharge Recommendations Date of Discharge Mar 21, 2017 at 12:39 Therapy D/C Recommendations: Home w/ Family Support Occupational Therapy Pt was seen for skilled OT to increase her independence with basic self care to allow her to safely return to her home with family support after recent hospitalization. On admission she needed setup help for grooming and min assist/ CGA for bathing, dressing, toileting and toilet transfers. By discharge she was modified independent with eating, grooming, dressing, toileting and toilet transfers and needed just setup for bathing and shower transfers. Equipment used included shower bench, grab bars, tall toilet, hand held shower and FWW. See tx plan for goals met. DC home with family support. PT Wheelage Clerk Goals Halfway Goals PT Wheelage Clerk Goals Time Frame: Apr 07, 2017 Transfers (B,C,W/C) (FIM): 6 Roll Left to Right (QC): 6 (et) Sit to Lying (QC): 6 (met) Lying-Sitting on Side/Bed(QC): 6 (met) Sit to Stand (QC): 6 Car Transfer (QC): 4 Gait (FIM): 6 Distance: 400' Walk 10 feet (QC): 6 Walk 10ft-Uneven Surface(QC): 6 Walk 50ft with 2 Turns (QC): 6 Walk 150 ft (QC): 6 Gait Assistive Device: FWW Stairs (FIM): 2 # of Steps: 4 (met) 1 Step (curb) (QC): 4 (met) 4 Steps (QC): 4 (met) 12 Steps (QC): 88 Stairs Level Of Assist: 5 (met) Picking up an Object (QC): 88 OT Wheelage Clerk Goals Wheelage Clerk Goals Time Frame: Apr 07, 2017 Eating (FIM): 6 (met 03/19/17) Eating (QC): 6 (6-MET) Oral Hygiene (QC): 6 (6-MET) Grooming(FIM): 6 (met 03/19/17) Bathing(FIM): 6 (not met) Shower/Bathe Self (QC): 6 (5(set up)-not met) Upper Body Dressing(FIM): 6 (met 03/19/17) Upper Body Dressing (QC): 6 (6-MET) Lower Body Dressing(FIM): 6 (met 03/19/17) Lower Body Dressing (QC): 6 (6-MET) On/Off Footwear (QC): 6 (6-MET) Toileting(FIM): 6 (met 03/19/17) Toileting Hygiene (QC): 6 (6-MET) Toilet/Commode Transfer(FIM): 6 (met 03/19/17) Toilet/Commode Transfer (QC): 6 (6-MET) Shower Transfer(FIM): 6 (not met) Additional Goals: 1-Demonstrate ADL Tasks, 2-Verbalize Understanding, 3- ImproveStrength/[place] 1=Demonstrate adherence to instructed precautions during ADL tasks. 2=Patient will verbalize/demonstrate understanding of assistive devices/ modifications for ADL. 3=Patient will improve strength/tolerance for activity to enable patient to perform ADL's. ROSSY CARTER OT Mar 22, 2017 08:38
[2017-04-07] MEDS ORDERED: RIVAROXABAN 20 MG TABLET (XARELTO) PO SCH (09:00)
== END 2017-03-21 12:39 | disposition home health service (06) | DRG 93 ==
LOC: ENPENDDIS 03-21 12:00
PROVIDERS: ADMIT Physical Medicine & Rehabilitation; ATTEND Physical Medicine & Rehabilitation
DX: G72.89 Other specified myopathies (principal); I48.91 Unspecified atrial fibrillation; I10 Essential (primary) hypertension; B36.9 Superficial mycosis, unspecified; Z86.711 Personal history of pulmonary embolism; Z86.718 Personal history of other venous thrombosis and embolism
CPT/HCPCS: 36415; 80053; 84443; 85025; 93005; 93306

== ENCOUNTER → 2021-06-10 | Outpatient (CLI) | payer MEDICARE ==
[~2021-06-10] MED LIST: ACET-2422 PO; CLOT15CR28 TOP; METO50TA15 PO; METO50TA7 PO; MTP100TCR PO; PANT40TA52 PO; RIVA1TAB PO
[2021-06-10 10:01] LABS: BASOPHILS # (AUTO) 0.1 10^3/uL (0.0-0.1); BASOPHILS % (AUTO) 1 % (0-10); EOSINOPHILS # (AUTO) 0.1 10^3/uL (0.0-0.3); EOSINOPHILS % (AUTO) 1 % (0-10); HEMATOCRIT 51 % (35-52); HEMOGLOBIN 15.7 g/dL (11.5-16.0); LYMPHOCYTES # (AUTO) 1.5 10^3/uL (1.0-4.0); LYMPHOCYTES % (AUTO) 21 % (12-44); MEAN CORPUSCULAR HEMOGLOBIN 28 pg (25-34); MEAN CORPUSCULAR HGB CONC 31 g/dL (32-36); MEAN CORPUSCULAR VOLUME 90 fL (80-99); MEAN PLATELET VOLUME 10.9 fL (9.0-12.2); MONOCYTES # (AUTO) 0.9 10^3/uL (0.0-1.0); MONOCYTES % (AUTO) 12 % (0-12); NEUTROPHILS # (AUTO) 4.7 10^3/uL (1.8-7.8); NEUTROPHILS % (AUTO) 65 % (42-75); PLATELET COUNT 199 10^3/uL (130-400); WHITE BLOOD COUNT 7.3 10^3/uL (4.3-11.0)
[2021-06-10 10:18] LABS: ALBUMIN 3.9 GM/DL (3.2-4.5); BILIRUBIN,TOTAL 0.7 MG/DL (0.1-1.0); CALCIUM 9.8 MG/DL (8.5-10.1); CREATININE SERUM 0.76 MG/DL (0.60-1.30); POTASSIUM 4.2 MMOL/L (3.6-5.0); TOTAL PROTEIN 6.5 GM/DL (6.4-8.2)
== END ==
LOC: CARD 08:42
PROVIDERS: ATTEND Internal Medicine Cardiovascular Disease
DX: I34.0 Nonrheumatic mitral (valve) insufficiency (principal); I34.1 Nonrheumatic mitral (valve) prolapse; I25.10 Atherosclerotic heart disease of native coronary artery without angina pectoris
CPT/HCPCS: 36415; 80053; 84443; 85025; 93306